=== PATIENT | male | born 1955 | race Caucasian/White ===

== ENCOUNTER 2017-01-03 16:05 | Observation (INO) | payer BC ==
[2017-01-03] MEDS ORDERED: ASPIRIN PO ONE (16:12)
[2017-01-03] MEDS ORDERED: ASPIRIN 81 MG CHEWTAB ONE (16:21)
[2017-01-03 16:33] LABS: BASOPHILS % (AUTO) 0.6 % (0.2-1.0); EOSINOPHILS % (AUTO) 0.4 % (0.9-2.9); HEMOGLOBIN 13.8 g/dL (13.5-18.0); LYMPHOCYTES # (AUTO) 0.9 X10^3/uL (1.3-2.9); LYMPHOCYTES % (AUTO) 13.1 % (21.0-51.0); MEAN CORPUSCULAR HEMOGLOBIN 29.4 pg (27.0-34.0); MEAN CORPUSCULAR HGB CONC 33.8 g/dL (33.0-35.0); MEAN CORPUSCULAR VOLUME 87.1 fL (80.0-100.0); MEAN PLATELET VOLUME 9.9 fL (7.4-11.0); MONOCYTES # (AUTO) 0.3 x10^3/uL (0.3-0.8); MONOCYTES % (AUTO) 4.5 % (0.0-13.0); NEUTROPHILS # (AUTO) 5.8 x10^3/uL (2.2-4.8); NEUTROPHILS % (AUTO) 81.4 % (42.0-75.0); PLATELET COUNT 131 X10^3/uL (150.0-450.0); RED CELL DISTRIBUTION WIDTH 15.4 % (11.6-16.5); WHITE BLOOD COUNT 7.1 X10^3/uL (3.6-10.0)
[2017-01-03 16:51] LABS: BLOOD UREA NITROGEN 19 mg/dL (7-18); CALCIUM 8.8 mg/dL (8.5-10.1); CARBON DIOXIDE 26.8 mmol/L (21-32); CHLORIDE 102 mmol/L (98-107); COR NA(FOR HYPERGLY) 144 mmol/L (136-145); CREATININE 1.38 mg/dL (0.70-1.30); GLUCOSE 353 mg/dL (65-99); SODIUM 138 mmol/L (136-145); TROPONIN I 0.03 ng/mL (0-1.5); eGFR BLACK RACES > 60 (>60); eGFR NON BLACK RACES 56 (>60)
[2017-01-03 16:55] LABS: ALANINE AMINOTRANSFERASE 52 Units/L (12-78); ALBUMIN 3.4 g/dL (3.4-5.0); ALKALINE PHOSPHATASE 48 Units/L (46-116); ASPARTATE AMINO TRANSFERASE 25 Units/L (15-37); CKMB % 1.9 % (<4); CREATINE KINASE 64 Units/L (39-308); CREATINE KINASE MB 1.2 ng/mL (0-4.0); TOTAL PROTEIN 6.8 g/dL (6.4-8.2)
--- NOTE | 2017-01-03 17:00 | RAD ---
HISTORY: Chest pain. Study: Chest one view Comparison: None. Findings: The trachea is midline. The cardiac silhouette is unremarkable. The lungs are clear without focal infiltrate or effusion. The bony thorax is unremarkable. IMPRESSION: 1. No acute cardiopulmonary disease. Reported By:
[2017-01-03 17:03] LABS: D DIMER 161 ng/mL (0-400)
--- NOTE | 2017-01-03 17:14 | DR.CP ---
HPI - Time Seen Time seen: 16:15 - PCP Primary Care Physician: rayna aleman - HPI Comment HPI Comment: PATIENT PAIN WAS SEVERE, 10/10 IN THE PRECORDIAL AREA. HE WAS WEAK AND DIAPHORETIC. CAME TO ED AFTER ONE HOUR AND PAIN IN ED IS 2/10. PATIENT SAID PAIN WAS HEAVY PRESSURE. HE WAS ALSO SOB. HE TOOK ALL HIS MORNING DAILY MED TODAY. - Complaint Chief Complaint Doctor Comments: CHEST PAIN WHILE GOING UP TH STEP TO DO HIS LAUDARY AT HOME AROUND 15:00PM TODAY. Chief Complaint:: patient was at home doing laundry and got short of breath and having chest pain and diaphritic. patient had 7 stints -03/01 - Reviewed Nurses Notes Review: Yes - Source History Provided: Patient - Mode of Arrival Mode of Arrival: Wheelchair - Timing Onset of Chief Complaint: 01/03/17 Pain: Present Now - Duration Duration: Constant Duration: Hours - Location Location of Chest Pain: Left, Chest Chest Pain Radiation Location: None - Context Onset: With light exertion PE Risk Factors: None History of: Similar pain in the past, NH, Angioplasty, Aspirin in last 24 hours (81MG) Prehospital Care: [facility] - Quality Quality: Pressure like, Heavy - Severity Severity: Severe - Modifying Factors Worsens: Nothing Impoves: Nothing - Associated Signs and Symptoms Associated Signs and Symptoms: Shortness of Breath, Diaphoresis PMH - PMH Past Medical History: Yes Past Medical History: Coronary Artery Disease, [place] Past Surgical History: Yes Surgical History: Angioplasty/Stents, Ortho Surgery, Other - Family History History of Family Medical Conditions: Yes Family Medical History: Coronary Artery Disease, Heart Failure - Social History Does patient currently use any type of tobacco product: No Have you used tobacco products in the last 12 months: No Type of Tobacco Use: None Does any household member use tobacco: No Alcohol Use: Rarely Do you use any recreational Drugs:: No Lives With: Family Lives Where: Home - infectious screening In the last 2 months have you had wt loss of >10#?: NO Have you had fever, night sweats or hemotysis?: No Have you traveled outside the country in the last 6 months?: No Isolation: Standard ROS - Review of Systems Constitutional: Weakness, Fatigue. negative: Chills, Fever Eyes: No Symptoms Reported. negative: Eye Pain, Discharge ENTM: No Symptoms Reported. negative: Ear Pain, Nose Discharge, Nose Congestion , Throat Pain Respiratoy: Short of Breath Cardiovascular: Chest Pain Gastrointestinal/Abdominal: Nausea Genitourinary: No Symptoms Reported. negative: Dysuria, Frequency, Hematuria Neurological: Weakness Musculoskeletal: No Symptoms Reported Integumentary: No Symptoms Reported Hematologic/Lymphatic: No Symptoms Reported Endocrine: No Symptoms Reported All Other Systems: Reviewed and Negative PE - Vitals Vitals: Temperature 98.7 F Pulse Rate 100 Respiratory Rate 16 Blood Pressure 132/88 O2 Sat by Pulse Oximetry 97 - General Limitations: No Limitations General Appearance: Alert - Head Head Exam: Normal Inspection - Eyes Eye exam: Normal Appearance - ENT ENT Exam: Normal External Ear Exam - Chest Chest Inspection: Symmetric Chest Wall Rise - Respiratory Respiratory Exam: Normal Lung Sounds Bilat Respiratory Exam: Bilateral Clear to Auscultation - Cardiovascular Cardiovascular Exam: Regular Rate, Normal Rhythm, Normal Heart Sounds Pulse: Normal, Radial, Femoral Edema: Normal - Abdominal Exam Abdominal Exam: Normal Bowel Sounds, Soft. negative: Tenderness - Extremities Extremities Exam: Normal Inspection - Back Back Exam: Normal Inspection - Neurologic Neurological Exam: Alert, Oriented X3 - Psychiatric Psychiatric Exam: Anxious - Skin Skin Exam: Pallor MDM - Additional Information Additional Information Obtained From: Family - Differential Diagnosis Differential Diagnosis: Angina, Esophageal Reflux/Spasm, Gastritis, Myocardial Infarction, Pericarditis, Pancreatitis, Pneumonia, Pneumothorax Course - Treatment Treatment: SEE ORDERS - Consultation Consultation Comments: DR NASSAR WILL PATIENT IN THE OFFICE. PATIENT WILL BE RULE OUT FOR NH AT THIS FACILITY. BENJY HUGHES WILL OBSERVE IN THE HOSPITAL TILL PATIENT IS RULE OUT FOR NH. - Education/Counseling Education/Counseling: Patient, Family, Education Educated On: Treatment, Diagnosis ROR - Labs Reviewed Laboratory Results Reviewed?: Yes Result Diagrams: 01/04/17 05:20 01/04/17 05:20 Laboratory: WBC 7.1 X10^3/uL (3.6-10.0) 01/03/17 16:18 RBC 4.70 X10^6/uL (4.7-6.0) 01/03/17 16:18 Hgb 13.8 g/dL (13.5-18.0) 01/03/17 16:18 Hct 41.0 % (42.0-54.0) L 01/03/17 16:18 MCV 87.1 fL (80.0-100.0) 01/03/17 16:18 MCH 29.4 pg (27.0-34.0) 01/03/17 16:18 MCHC 33.8 g/dL (33.0-35.0) 01/03/17 16:18 RDW 15.4 % (11.6-16.5) 01/03/17 16:18 Plt Count 131 X10^3/uL (150.0-450.0) L 01/03/17 16:18 MPV 9.9 fL (7.4-11.0) 01/03/17 16:18 Neut % 81.4 % (42.0-75.0) H 01/03/17 16:18 Lymph % 13.1 % (21.0-51.0) L 01/03/17 16:18 [place] % 4.5 % (0.0-13.0) 01/03/17 16:18 Eos % 0.4 % (0.9-2.9) L 01/03/17 16:18 Baso % 0.6 % (0.2-1.0) 01/03/17 16:18 Neut # 5.8 x10^3/uL (2.2-4.8) H 01/03/17 16:18 Lymph # 0.9 X10^3/uL (1.3-2.9) L 01/03/17 16:18 [place] # 0.3 x10^3/uL (0.3-0.8) 01/03/17 16:18 Eos # 0.0 x10^3/uL (0.0-0.2) 01/03/17 16:18 Baso # 0.0 X10^3/uL (0.0-0.1) 01/03/17 16:18 Absolute Nucleated RBC 0.1 /100WBC 01/03/17 16:18 INR Target Range - 01/03/17 16:18 INR 1.04 (0.8-1.3) 01/03/17 16:18 PTT 24.4 SECONDS (22.9-36.5) 01/03/17 16:18 PTT Comment - 01/03/17 16:18 D-Dimer 161 ng/mL (0-400) 01/03/17 16:18 Sodium 138 mmol/L (136-145) 01/03/17 16:18 Corrected Sodium 144 mmol/L (136-145) 01/03/17 16:18 Potassium 4.3 mmol/L (3.5-5.1) 01/03/17 16:18 Chloride 102 mmol/L (98-107) 01/03/17 16:18 Carbon Dioxide 26.8 mmol/L (21-32) 01/03/17 16:18 BUN 19 mg/dL (7-18) H 01/03/17 16:18 Creatinine 1.38 mg/dL (0.70-1.30) H 01/03/17 16:18 Est GFR (MDRD) Af Amer > 60 (>60) 01/03/17 16:18 Est GFR (MDRD) Non-Af 56 (>60) L 01/03/17 16:18 Glucose 353 mg/dL (65-99) H 01/03/17 16:18 Calcium 8.8 mg/dL (8.5-10.1) 01/03/17 16:18 Corrected Calcium TNP 01/03/17 16:18 Magnesium 1.0 mg/dL (1.7-2.9) L 01/03/17 16:18 Total Bilirubin 0.80 mg/dL (0.2-1.0) 01/03/17 16:18 AST 25 Units/L (15-37) 01/03/17 16:18 ALT 52 Units/L (12-78) 01/03/17 16:18 Alkaline Phosphatase 48 Units/L (46-116) 01/03/17 16:18 Creatine Kinase 64 Units/L (39-308) 01/03/17 16:18 CK-MB (CK-2) 1.2 ng/mL (0-4.0) 01/03/17 16:18 CK/CKMB % Calc 1.9 % (<4) 01/03/17 16:18 Troponin I 0.03 ng/mL (0-1.5) 01/03/17 16:18 Total Protein 6.8 g/dL (6.4-8.2) 01/03/17 16:18 Albumin 3.4 g/dL (3.4-5.0) 01/03/17 16:18 Globulin 3.4 g/dL (2.5-4.5) 01/03/17 16:18 Albumin/Globulin Ratio 1.0 Ratio (1.1-2.1) L 01/03/17 16:18 Acetone, Semi-Quant Negative (NEGATIVE) 01/03/17 17:02 - XRAY XRAY Interpreted by: Radiologist XRAY Findings: REPORT DISCUSS WITH PATIENT AND HIS . - Diagnosis Discharge Problem: Respiratory distress Chest pain Qualifiers: Chest pain type: precordial pain Qualified Code(s): R07.2 - Precordial pain - Discharge Plan Disposition: ADMITTED INPATIENT Condition: Stable - Follow ups/Referrals - Instructions
[2017-01-03 17:32] LABS: BILIRUBIN,URINE NEGATIVE (NEGATIVE); BLOOD/HEMOGLOBIN,URINE NEGATIVE (NEGATIVE); GLUCOSE, URINE 4+ (NEGATIVE); KETONES,URINE 1+ (NEGATIVE); LEUKOCYTE ESTERASE ,URINE NEGATIVE (NEGATIVE); NITRITES,URINE NEGATIVE (NEGATIVE); PROTEIN,URINE NEGATIVE (NEGATIVE); UROBILINOGEN,URINE NORMAL (NORMAL)
[2017-01-03 17:40] LABS: AMORPHOUS SEDIMENT,UR TRACE /HPF (NEGATIVE); APPEARANCE,URINE CLEAR (CLEAR); BACTERIA,URINE NEGATIVE /HPF (NEGATIVE); COLOR,URINE YELLOW (YELLOW); RBC,URINE 0-1 /HPF (NEGATIVE); SQUAMOUS EPITHELIAL CELL,UR NEGATIVE /HPF (NEGATIVE)
[2017-01-03] MEDS ORDERED: LIPITOR TAB 40 MG PO SCH (21:00)
[2017-01-03] MEDS ORDERED: MAGNESIUM SULFATE 1 GM/100 mL PREMIX 1 GM/100 ML BAG IV ONE (21:02)
[2017-01-03] MEDS ORDERED: ZANTAC PO PRN (21:04)
[2017-01-03 21:23] VITALS: BMI 30.4
[2017-01-03] MEDS: NEURONTIN CAP 100 MG PO SCH (21:57)
[2017-01-03] MEDS: RANEXA PO SCH (22:02)
[2017-01-03] MEDS: LOPRESSOR TAB 50 MG PO SCH (22:02)
[2017-01-03 22:12] LABS: CREATINE KINASE 51 Units/L (39-308); CREATINE KINASE MB < 1.0 ng/mL (0-4.0); TROPONIN I 0.02 ng/mL (0-1.5)
[2017-01-04 05:56] LABS: ALANINE AMINOTRANSFERASE 45 Units/L (12-78); ALBUMIN 3.2 g/dL (3.4-5.0); ALKALINE PHOSPHATASE 40 Units/L (46-116); ASPARTATE AMINO TRANSFERASE 20 Units/L (15-37); BLOOD UREA NITROGEN 16 mg/dL (7-18); CALCIUM 8.6 mg/dL (8.5-10.1); CARBON DIOXIDE 31.8 mmol/L (21-32); CHLORIDE 104 mmol/L (98-107); CHOL/HDL RATIO 3.5 (0.0-5.0); CHOLESTEROL 187 mg/dL (0-200); CKMB % 2.6 % (<4); COR CA(FOR HYPOALB) 9.2 mg/dL (8.5-10.1); COR NA(FOR HYPERGLY) 142 mmol/L (136-145); CREATINE KINASE 39 Units/L (39-308); CREATINE KINASE MB < 1.0 ng/mL (0-4.0); CREATININE 0.97 mg/dL (0.70-1.30); GLUCOSE 173 mg/dL (65-99); HDL CHOLESTEROL 54 mg/dL (40-60); SODIUM 140 mmol/L (136-145); TOTAL PROTEIN 6.4 g/dL (6.4-8.2); TRIGLYCERIDES 154 mg/dL (0-150); TROPONIN I 0.03 ng/mL (0-1.5); eGFR BLACK RACES > 60 (>60); eGFR NON BLACK RACES > 60 (>60)
[2017-01-04 06:05] LABS: BASOPHILS # (AUTO) 0.1 X10^3/uL (0.0-0.1); BASOPHILS % (AUTO) 0.7 % (0.2-1.0); EOSINOPHILS # (AUTO) 0.1 x10^3/uL (0.0-0.2); EOSINOPHILS % (AUTO) 1.8 % (0.9-2.9); HEMATOCRIT 38.6 % (42.0-54.0); HEMOGLOBIN 13.2 g/dL (13.5-18.0); LYMPHOCYTES # (AUTO) 2.7 X10^3/uL (1.3-2.9); LYMPHOCYTES % (AUTO) 36.2 % (21.0-51.0); MEAN CORPUSCULAR HEMOGLOBIN 29.4 pg (27.0-34.0); MEAN CORPUSCULAR HGB CONC 34.2 g/dL (33.0-35.0); MEAN PLATELET VOLUME 9.3 fL (7.4-11.0); MONOCYTES # (AUTO) 0.7 x10^3/uL (0.3-0.8); MONOCYTES % (AUTO) 9.4 % (0.0-13.0); NEUTROPHILS # (AUTO) 3.8 x10^3/uL (2.2-4.8); NEUTROPHILS % (AUTO) 51.9 % (42.0-75.0); PLATELET COUNT 132 X10^3/uL (150.0-450.0); RED BLOOD COUNT 4.49 X10^6/uL (4.7-6.0); RED CELL DISTRIBUTION WIDTH 15.4 % (11.6-16.5); WHITE BLOOD COUNT 7.4 X10^3/uL (3.6-10.0)
[2017-01-04] MEDS ORDERED: PATIENT'S HOME MEDICATION (Atorvastatin Calcium [Atorvastatin Calcium] 80 MG) PO SCH (09:00)
[2017-01-04] MEDS: FLOMAX PO SCH (09:21)
[2017-01-04] MEDS: ASPIRIN EC 81 MG PO SCH (09:21)
[2017-01-04] MEDS: PREDNISONE TAB 10 MG PO SCH (09:21)
[2017-01-04] MEDS: NEURONTIN CAP 100 MG PO SCH ×3 (09:22→21:25)
[2017-01-04] MEDS: RANEXA PO SCH ×2 (09:22→21:25)
[2017-01-04] MEDS: LIPITOR TAB 40 MG PO SCH (09:22)
[2017-01-04] MEDS: PLAVIX PO SCH (09:22)
[2017-01-04] MEDS: ATARAX TAB 25 MG PO SCH ×4 (09:23→21:32)
[2017-01-04] MEDS: LOPRESSOR TAB 50 MG PO SCH ×2 (09:23→21:25)
[2017-01-04] MEDS: FOLIC ACID TAB 1 MG PO SCH (09:23)
[2017-01-04] MEDS ORDERED: PHARMACY CONSULT - DOSE _____ XX SCH (10:00)
[2017-01-04] MEDS ORDERED: NS 250 ML IV 0 ML IV ONE (10:53)
[2017-01-04] MEDS: MAGNESIUM SULFATE 1 GM/100 mL PREMIX 1 GM/100 ML BAG IV SCH ×3 (11:04→12:49)
[2017-01-04] MEDS: PROTONIX INJ 40 MG VIAL IVP SCH (11:05)
[2017-01-04] MEDS: LEVSIN/MAALOX/LIDOC VISC PO SCH ×4 (11:05→21:24)
[2017-01-04] MEDS: TESTOSTERONE TOP SCH ×2 (11:13→14:31)
[2017-01-04] MEDS: GARLIC 1000 MG PO SCH ×2 (11:13→14:31)
[2017-01-04] MEDS: HumuLIN R SUBCUT PRN ×2 (11:25→18:02)
--- NOTE | 2017-01-04 14:10 | DR.H&P ---
H&P - History & Physical for Day of: H&P Date: 01/03/17 - Chief Complaint Chief Complaint: cp and sob - Allergies Allergies/Adverse Reactions: Allergies Allergy/AdvReac Type Severity Reaction Status Date / Time alprazolam [From Xanax] Allergy Verified 01/03/17 21:27 diazepam [From Valium] Allergy Verified 01/03/17 21:27 - History of Present Illness History of Present Illness: Mister Childress is a 61-year-old white male who was an admission from the ER after presenting with complaints of chest pain and shortness of breath accompanied by diaphoresis. Patient stated pain started after climbing stairs with a laundry basket. Patient stated he tried to rest for approximately an hour before arrived home and she stated patient was still clammy at that time. Patient's complaint of lower extremity weakness as well. Upon arrival to the ER patient was noted to be anxious. Patient's blood sugar on arrival was elevated he denies any history of diabetes. Patient states his last heart catheterization was November [address] Johnson is in which he received 2 stents. Patient states he saw Dr. Johnson for follow-up last week and everything was fine. 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 Patient admitted for further evaluation of chest pain, serial cardiac enzymes and EKGs. - Past Medical History Past Medical History: Coronary Artery Disease, [place] - Past Surgical History Surgical History: Angioplasty/Stents, Ortho Surgery, Other - Family History Family Medical History: Coronary Artery Disease, Heart Failure - Social History Does patient currently use any type of tobacco product: No Have you used tobacco products in the last 12 months: No Type of Tobacco Use: None Does any household member use tobacco: No Alcohol Use: Rarely Drug Use: None - Medications Home Medications: Aspirin [Adult Low Dose Aspirin EC] 81 mg PO DAILY 01/03/17 [History Confirmed 01/03/17] Atorvastatin Calcium 80 mg PO DAILY 01/03/17 [History Confirmed 01/03/17] Clopidogrel Bisulfate [Clopidogrel] 75 mg PO DAILY 01/03/17 [History Confirmed 01/03/17] Doxazosin Mesylate 2 mg [CARDURA 2 MG *] 4 mg PO HS 01/03/17 [History Confirmed 01/03/17] Folic Acid [FOLIC ACID TAB 1 MG *] 1 mg PO DAILY 01/03/17 [History Confirmed ] Gabapentin [Gabapentin] 100 mg PO TID 01/03/17 [History Confirmed 01/03/17] Garlic 1,000 mg PO DAILY 01/03/17 [History Confirmed 01/03/17] Hydroxyzine HCl [Hydroxyzine HCl] 25 mg PO QID 01/03/17 [History Confirmed 01/03] Methotrexate Sodium [METHOTREXATE 2.5 MG *] 6 tab PO WEEKLY 01/03/17 [History Confirmed 01/03/17] Metoprolol Tartrate [LOPRESSOR 50 MG *] 50 mg PO BID 01/03/17 [History Confirmed 01/03/17] Prednisone [Prednisone] 20 mg PO DAILY 01/03/17 [History Confirmed 01/03/17] Ranitidine HCl [ZANTAC TAB 150 MG *] 150 mg PO PRN PRN 01/03/17 [History Confirmed 01/03/17] Ranolazine [RANEXA 500 MG *] 500 mg PO BID 01/03/17 [History Confirmed 01/03/17] Tamsulosin HCl [Tamsulosin HCl] 0.4 mg PO DAILY 01/03/17 [History Confirmed ] Testosterone [Androgel 1.62% 30 x 1.25 gm] 2.5 mg TOP DAILY 01/03/17 [History Confirmed 01/03/17] - Review of Systems Constitutional: Sweats, Weakness Eyes: No Symptoms Reported Respiratory: Shortness of Breath Cardiovascular: Chest Pain Gastrointestinal: Nausea Genitourinary: No Symptoms Reported Musculoskeletal: Back Pain, Leg Pain Skin: No Symptoms Reported Neurological: Weakness (mild to bilateral lower extremities) - Physical Exam Vital Signs: Temperature 98.0 F Pulse Rate [Left Brachial] 52 Respiratory Rate 20 Blood Pressure [Left Arm] 104/69 O2 Sat by Pulse Oximetry 98 Oriented: Normal Eyes: Normal Ear: Normal Nose: Normal Throat: Normal Respiratory: Clear Throughout Cardiovascular: Normal, Edema (mmild bilateral trace edema) : Normal Auscultation: Bowel Sounds: Normal Palpation: Normal Tenderness: Epigastric Skin: Normal Musculoskeletal: Normal Psychiatric: Anxiety Affect: Anxious Speech Pattern: Clear, Appropriate - Assessment/Plan (1) Chest pain Qualifiers: Chest pain type: precordial pain Ischemic chest pain type: I Qualified Code(s): R07.2 - Precordial pain Status: Acute Plan: admit for serial cardiac enzymes and EKGs, telemetry, fasting lipid level , chest x-ray on admission, present home medication (2) Shortness of breath Status: Acute (3) Still's disease Status: Acute (4) Hypertension Qualifiers: Hypertension type: H Status: Acute (5) Coronary artery disease Qualifiers: Coronary Disease-Associated Artery/Lesion type: C [place] vs. transplanted heart: N Associated angina: A Status: Acute
--- NOTE | 2017-01-04 14:15 | PCM.PROG ---
Progress Note - Progress Note for Day of Date: 01/04/17 - Subjective Subjective: Chest pain,, lower extremity weakness, reflux - Past Medical Family Social History Past Med/Fam/Surg Hx: No changes since H&P Allergies: Allergies alprazolam [From Xanax] Allergy (Verified 01/03/17 21:27) diazepam [From Valium] Allergy (Verified 01/03/17 21:27) - Review of Systems ROS: No change since H&P - Vital Signs and I&O's Vital Signs: Temperature 98.0 F Pulse Rate [Left Brachial] 52 Respiratory Rate 20 Blood Pressure [Left Arm] 104/69 O2 Sat by Pulse Oximetry 98 Intake and Output: Intake & Output 01/02/17 01/03/17 01/04/17 01/05/17 11:59 11:59 11:59 11:59 Intake Total 120 Output Total 3 Balance 117 - Physical Exam Oriented: Normal Eyes: Normal Ear: Normal Nose: Normal Throat: Normal Respiratory: Normal Cardiovascular: Normal, Edema (mmild bilateral trace edema) : Normal Auscultation: Bowel Sounds: Normal Tenderness: Epigastric Skin: Normal Musculoskeletal: Normal Psychiatric: Anxiety Affect: Anxious Speech Pattern: Clear, Appropriate - Laboratory and Diagnostics Result Diagrams: 01/04/17 05:20 01/04/17 05:20 Labs: Laboratory WBC 7.4 X10^3/uL (3.6-10.0) 01/04/17 05:20 RBC 4.49 X10^6/uL (4.7-6.0) L 01/04/17 05:20 Hgb 13.2 g/dL (13.5-18.0) L 01/04/17 05:20 Hct 38.6 % (42.0-54.0) L 01/04/17 05:20 MCV 86.0 fL (80.0-100.0) 01/04/17 05:20 MCH 29.4 pg (27.0-34.0) 01/04/17 05:20 MCHC 34.2 g/dL (33.0-35.0) 01/04/17 05:20 RDW 15.4 % (11.6-16.5) 01/04/17 05:20 Plt Count 132 X10^3/uL (150.0-450.0) L 01/04/17 05:20 MPV 9.3 fL (7.4-11.0) 01/04/17 05:20 Neut % 51.9 % (42.0-75.0) 01/04/17 05:20 Lymph % 36.2 % (21.0-51.0) 01/04/17 05:20 [place] % 9.4 % (0.0-13.0) 01/04/17 05:20 Eos % 1.8 % (0.9-2.9) 01/04/17 05:20 Baso % 0.7 % (0.2-1.0) 01/04/17 05:20 Neut # 3.8 x10^3/uL (2.2-4.8) 01/04/17 05:20 Lymph # 2.7 X10^3/uL (1.3-2.9) 01/04/17 05:20 [place] # 0.7 x10^3/uL (0.3-0.8) 01/04/17 05:20 Eos # 0.1 x10^3/uL (0.0-0.2) 01/04/17 05:20 Baso # 0.1 X10^3/uL (0.0-0.1) 01/04/17 05:20 Absolute Nucleated RBC 0.2 /100WBC 01/04/17 05:20 INR Target Range - 01/03/17 16:18 INR 1.04 (0.8-1.3) 01/03/17 16:18 PTT 24.4 SECONDS (22.9-36.5) 01/03/17 16:18 PTT Comment - 01/03/17 16:18 D-Dimer 161 ng/mL (0-400) 01/03/17 16:18 Sodium 140 mmol/L (136-145) 01/04/17 05:20 Corrected Sodium 142 mmol/L (136-145) 01/04/17 05:20 Potassium 3.8 mmol/L (3.5-5.1) 01/04/17 05:20 Chloride 104 mmol/L (98-107) 01/04/17 05:20 Carbon Dioxide 31.8 mmol/L (21-32) 01/04/17 05:20 BUN 16 mg/dL (7-18) 01/04/17 05:20 Creatinine 0.97 mg/dL (0.70-1.30) 01/04/17 05:20 Est GFR (MDRD) Af Amer > 60 (>60) 01/04/17 05:20 Est GFR (MDRD) Non-Af > 60 (>60) 01/04/17 05:20 Glucose 173 mg/dL (65-99) H 01/04/17 05:20 Hemoglobin A1c 8.3 % (4.5-6.2) H 01/03/17 16:27 Calcium 8.6 mg/dL (8.5-10.1) 01/04/17 05:20 Corrected Calcium 9.2 mg/dL (8.5-10.1) 01/04/17 05:20 Magnesium 1.2 mg/dL (1.7-2.9) L 01/04/17 05:20 Total Bilirubin 0.80 mg/dL (0.2-1.0) 01/04/17 05:20 AST 20 Units/L (15-37) 01/04/17 05:20 ALT 45 Units/L (12-78) 01/04/17 05:20 Alkaline Phosphatase 40 Units/L (46-116) L 01/04/17 05:20 Creatine Kinase 39 Units/L (39-308) 01/04/17 05:20 CK-MB (CK-2) < 1.0 ng/mL (0-4.0) 01/04/17 05:20 CK/CKMB % Calc 2.6 % (<4) 01/04/17 05:20 Troponin I 0.03 ng/mL (0-1.5) 01/04/17 05:20 Total Protein 6.4 g/dL (6.4-8.2) 01/04/17 05:20 Albumin 3.2 g/dL (3.4-5.0) L 01/04/17 05:20 Globulin 3.2 g/dL (2.5-4.5) 01/04/17 05:20 Albumin/Globulin Ratio 1.0 Ratio (1.1-2.1) L 01/04/17 05:20 Triglycerides 154 mg/dL (0-150) H 01/04/17 05:20 Cholesterol 187 mg/dL (0-200) 01/04/17 05:20 LDL Cholesterol, Calc 102 mg/dL (0-100) H 01/04/17 05:20 HDL Cholesterol 54 mg/dL (40-60) 01/04/17 05:20 Cholesterol/HDL Ratio 3.5 (0.0-5.0) 01/04/17 05:20 Specimen Type Clean catch urine 01/03/17 17:23 Urine Color Yellow (YELLOW) 01/03/17 17:23 Urine Appearance Clear (CLEAR) 01/03/17 17:23 Urine pH 5.0 (5.0 - 8.0) 01/03/17 17:23 Ur Specific [place] 1.015 (1.000-1.030) 01/03/17 17:23 Urine Protein Negative (NEGATIVE) 01/03/17 17:23 Urine Glucose (UA) 4+ (NEGATIVE) 01/03/17 17:23 Urine Ketones 1+ (NEGATIVE) 01/03/17 17:23 Urine Occult Blood Negative (NEGATIVE) 01/03/17 17:23 Urine Nitrite Negative (NEGATIVE) 01/03/17 17:23 Urine Bilirubin Negative (NEGATIVE) 01/03/17 17:23 Urine Urobilinogen Normal (NORMAL) 01/03/17 17:23 Ur Leukocyte Esterase Negative (NEGATIVE) 01/03/17 17:23 Urine RBC 0-1 /HPF (NEGATIVE) 01/03/17 17:23 Urine WBC None seen /HPF (NEGATIVE) 01/03/17 17:23 Ur Squamous Epith Cells Negative /HPF (NEGATIVE) 01/03/17 17:23 Amorphous Sediment Trace /HPF (NEGATIVE) 01/03/17 17:23 Urine Bacteria Negative /HPF (NEGATIVE) 01/03/17 17:23 Ur Culture Indicated? No/not indicated 01/03/17 17:23 Acetone, Semi-Quant Negative (NEGATIVE) 01/03/17 17:02 - Plan (1) Chest pain Status: Acute Qualifiers: Chest pain type: precordial pain Ischemic chest pain type: I Qualified Code(s): R07.2 - Precordial pain Plan: serial cardiac enzymes and EKG stable. ER physician contacted Dr. Johnson , patient's ironer machine last p.m. recommended patient have serial cardiac enzymes and EKGs. We'll continue blood pressure and lipid control (2) Shortness of breath Status: Acute (3) Still's disease Status: Acute (4) Hypertension Status: Acute Qualifiers: Hypertension type: H (5) Coronary artery disease Status: Acute Qualifiers: Coronary Disease-Associated Artery/Lesion type: C [place] vs. transplanted heart: N Associated angina: A Plan: telemetry, blood pressure lipid control, supplemental O2, blood sugar control (6) Diabetes type 2, uncontrolled Status: Acute Qualifiers: Diabetes mellitus complication status: D Diabetes mellitus complication detail: D Diabetic retinopathy severity: D Proliferative retinopathy type: P Diabetes mellitus macular edema: D Diabetes mellitus residential insulin use : D Laterality: L Chronic kidney disease stage: C Plan: new onset diabetes, probably due to prednisone therapy for still's disease , but the A1c, sliding scale insulin coverage and diabetic education (7) Hypomagnesemia Status: Acute Plan: magnesium replacement, blood pressure control, repeat a.m. labs
[2017-01-04] MEDS ORDERED: RESTORIL CAP 15 MG PO PRN (18:27)
[2017-01-04] MEDS ORDERED: SNACK - Diabetic Appropriate PO SCH (20:00)
[2017-01-04] MEDS ORDERED: CARDURA PO SCH (21:00)
[2017-01-05 04:51] LABS: BASOPHILS # (AUTO) 0.1 X10^3/uL (0.0-0.1); BASOPHILS % (AUTO) 0.9 % (0.2-1.0); EOSINOPHILS # (AUTO) 0.2 x10^3/uL (0.0-0.2); EOSINOPHILS % (AUTO) 2.2 % (0.9-2.9); HEMATOCRIT 38.7 % (42.0-54.0); HEMOGLOBIN 13.1 g/dL (13.5-18.0); LYMPHOCYTES # (AUTO) 2.8 X10^3/uL (1.3-2.9); LYMPHOCYTES % (AUTO) 39.9 % (21.0-51.0); MEAN CORPUSCULAR HEMOGLOBIN 29.6 pg (27.0-34.0); MEAN CORPUSCULAR HGB CONC 33.8 g/dL (33.0-35.0); MEAN CORPUSCULAR VOLUME 87.6 fL (80.0-100.0); MEAN PLATELET VOLUME 9.4 fL (7.4-11.0); MONOCYTES # (AUTO) 0.5 x10^3/uL (0.3-0.8); MONOCYTES % (AUTO) 7.3 % (0.0-13.0); NEUTROPHILS # (AUTO) 3.4 x10^3/uL (2.2-4.8); NEUTROPHILS % (AUTO) 49.7 % (42.0-75.0); PLATELET COUNT 131 X10^3/uL (150.0-450.0); RED BLOOD COUNT 4.42 X10^6/uL (4.7-6.0); RED CELL DISTRIBUTION WIDTH 15.2 % (11.6-16.5); WHITE BLOOD COUNT 6.9 X10^3/uL (3.6-10.0)
[2017-01-05 05:22] LABS: ALANINE AMINOTRANSFERASE 47 Units/L (12-78); ALBUMIN 3.1 g/dL (3.4-5.0); ALKALINE PHOSPHATASE 39 Units/L (46-116); AMYLASE 42 Units/L (25-115); ASPARTATE AMINO TRANSFERASE 23 Units/L (15-37); BLOOD UREA NITROGEN 17 mg/dL (7-18); CALCIUM 8.5 mg/dL (8.5-10.1); CARBON DIOXIDE 32.7 mmol/L (21-32); CHLORIDE 104 mmol/L (98-107); COR CA(FOR HYPOALB) 9.2 mg/dL (8.5-10.1); COR NA(FOR HYPERGLY) 142 mmol/L (136-145); CREATININE 1.08 mg/dL (0.70-1.30); GLUCOSE 167 mg/dL (65-99); LIPASE 89 Units/L (73-393); MAGNESIUM 1.6 mg/dL (1.7-2.9); SODIUM 140 mmol/L (136-145); TOTAL PROTEIN 6.2 g/dL (6.4-8.2); eGFR BLACK RACES > 60 (>60); eGFR NON BLACK RACES > 60 (>60)
[2017-01-05] MEDS: NEURONTIN CAP 100 MG PO SCH ×2 (05:54→14:22)
[2017-01-05] MEDS: RANEXA PO SCH (09:04)
[2017-01-05] MEDS: ATARAX TAB 25 MG PO SCH ×2 (09:04→14:22)
[2017-01-05] MEDS: PREDNISONE TAB 10 MG PO SCH (09:04)
[2017-01-05] MEDS: PROTONIX INJ 40 MG VIAL IVP SCH (09:04)
[2017-01-05] MEDS: LOPRESSOR TAB 50 MG PO SCH (09:04)
[2017-01-05] MEDS: FLOMAX PO SCH (09:04)
[2017-01-05] MEDS: LIPITOR TAB 40 MG PO SCH (09:04)
[2017-01-05] MEDS: ASPIRIN EC 81 MG PO SCH (09:04)
[2017-01-05] MEDS: FOLIC ACID TAB 1 MG PO SCH (09:04)
[2017-01-05] MEDS: GARLIC 1000 MG PO SCH (09:05)
[2017-01-05] MEDS: PLAVIX PO SCH (09:10)
[2017-01-05] MEDS: LEVSIN/MAALOX/LIDOC VISC PO SCH ×2 (09:11→14:23)
[2017-01-05] MEDS: TESTOSTERONE TOP SCH (09:13)
[2017-01-05] MEDS: HumuLIN R SUBCUT PRN (14:22)
[2017-01-05 16:16] VITALS: BP 108/66
== END 2017-01-05 16:50 | disposition home or self-care (01) ==
LOC: ER 16:05 → MED/SURG 18:39
PROVIDERS: ADMIT Internal Medicine; ATTEND Internal Medicine
DX: R07.2 Precordial pain (principal); R06.02 Shortness of breath; R61 Generalized hyperhidrosis; K21.9 Gastro-esophageal reflux disease without esophagitis; M08.20 Juvenile rheumatoid arthritis with systemic onset, unspecified site; M19.90 Unspecified osteoarthritis, unspecified site; E83.42 Hypomagnesemia; I10 Essential (primary) hypertension; E11.9 Type 2 diabetes mellitus without complications; I25.10 Atherosclerotic heart disease of native coronary artery without angina pectoris
CPT/HCPCS: 36415; 71010; 80053; 80061; 81001; 82009; 82150; 82550; 82553; 83036; 83690; 83735; 84484; 85025; 85378; 85610; 85730; 93005; 93010; 94760; 96365; 99284; A4216; A4222; C9113; G0378; J1815; J7506

== ENCOUNTER 2019-12-13 10:55 | Inpatient (IN) ==
--- NOTE | 2019-12-13 11:07 | DR.CP ---
HPI Time Seen Time Seen by Provider: 12/13/19 11:06 PMH PMH Past Medical History: Coronary Artery Disease, Dyslipidemia and Hypertension Past Surgical History: Yes Surgical History: Angioplasty/Stents and Ortho Surgery Family History Family Medical History: Coronary Artery Disease and Heart Failure Social History Do you use any recreational Drugs:: No ROS Review of Systems Constitutional: No Symptoms Reported Eyes: No Symptoms Reported ENTM: No Symptoms Reported Respiratoy: No Symptoms Reported Cardiovascular: No Symptoms Reported Gastrointestinal/Abdominal: No Symptoms Reported Genitourinary: No Symptoms Reported Neurological: No Symptoms Reported Musculoskeletal: No Symptoms Reported Integumentary: No Symptoms Reported Hematologic/Lymphatic: No Symptoms Reported Endocrine: No Symptoms Reported Psychiatric: No Symptoms Reported All Other Systems: Reviewed and Negative PE Vitals Vitals: Temperature 100 F Pulse Rate 61 Respiratory Rate 24 Blood Pressure [Right Arm] 129/81 Blood Pressure 129/73 O2 Sat by Pulse Oximetry 97 General Limitations: No Limitations General Appearance: Alert and In No Apparent Distress Head Head Exam: Normal Inspection Eyes Eye exam: Normal Appearance ENT ENT Exam: Normal Exam Chest Chest Inspection: Normal Inspection Respiratory Respiratory Exam: Normal Lung Sounds Bilat Cardiovascular Cardiovascular Exam: Regular Rate and Normal Rhythm Pulse: Normal Edema: Normal Abdominal Exam Abdominal Exam: Normal Inspection, Normal Bowel Sounds and Soft Extremities Extremities Exam: Normal Inspection Back Back Exam: Normal Inspection Neurologic Neurological Exam: Alert and Oriented X3 Psychiatric Psychiatric Exam: Normal Affect and Normal Mood Skin Skin Exam: Warm, Dry, Intact and Normal Color ROR Labs Reviewed Result Diagrams: 12/13/19 11:44 12/13/19 11:44 Laboratory: WBC 12.2 X10^3/uL (3.6-10.0) H 12/13/19 11:44 RBC 4.76 X10^6/uL (4.7-6.0) 12/13/19 11:44 Hgb 14.5 g/dL (13.5-18.0) 12/13/19 11:44 Hct 42.3 % (42.0-54.0) 12/13/19 11:44 MCV 88.9 fL (80.0-100.0) 12/13/19 11:44 MCH 30.5 pg (27.0-34.0) 12/13/19 11:44 MCHC 34.3 g/dL (33.0-35.0) 12/13/19 11:44 RDW 14.0 % (11.6-16.5) 12/13/19 11:44 Plt Count 93 X10^3/uL (150.0-450.0) L 12/13/19 11:44 MPV 9.1 fL (7.4-11.0) 12/13/19 11:44 Neut % (Auto) 89.3 % (42.0-75.0) H 12/13/19 11:44 Lymph % (Auto) 5.5 % (21.0-51.0) L 12/13/19 11:44 [place] % (Auto) 4.9 % (0.0-13.0) 12/13/19 11:44 Eos % (Auto) 0.0 % (0.9-2.9) L 12/13/19 11:44 Baso % (Auto) 0.3 % (0.2-1.0) 12/13/19 11:44 Neut # (Auto) 10.9 x10^3/uL (2.2-4.8) H 12/13/19 11:44 Lymph # (Auto) 0.7 X10^3/uL (1.3-2.9) L 12/13/19 11:44 [place] # (Auto) 0.6 x10^3/uL (0.3-0.8) 12/13/19 11:44 Eos # (Auto) 0.0 x10^3/uL (0.0-0.2) 12/13/19 11:44 Baso # (Auto) 0.0 X10^3/uL (0.0-0.1) 12/13/19 11:44 Absolute Nucleated RBC 0.2 /100WBC 12/13/19 11:44 Sample Site Lr 12/13/19 11:20 ABG pH 7.480 (7.35-7.45) H 12/13/19 11:20 ABG pCO2 35.0 mmHg (35.0-45.0) 12/13/19 11:20 ABG pO2 57.0 mmHg (80.0-100.0) L 12/13/19 11:20 ABG HCO3 26.1 mmol/L (22-26) H 12/13/19 11:20 ABG O2 Saturation 91.0 % (90-100) 12/13/19 11:20 ABG Base Excess 2.8 mmol/L (-2.0-2.0) H 12/13/19 11:20 Evan Test Pos 12/13/19 11:20 A-a Gradient 49.0 mmHg 12/13/19 11:20 FiO2 21.0 12/13/19 11:20 Blood Gas Comments Rico well cb 12/13/19 11:20 Sodium 132 mmol/L (136-145) L 12/13/19 11:44 Corrected Sodium 132 mmol/L (136-145) L 12/13/19 11:44 Potassium 3.9 mmol/L (3.5-5.1) 12/13/19 11:44 Chloride 96 mmol/L (98-107) L 12/13/19 11:44 Carbon Dioxide 27.3 mmol/L (21-32) 12/13/19 11:44 BUN 16 mg/dL (7-18) 12/13/19 11:44 Creatinine 1.52 mg/dL (0.70-1.30) H 12/13/19 11:44 Est GFR (MDRD) Af Amer 60 (>60) 12/13/19 11:44 Est GFR (MDRD) Non-Af 49 (>60) L 12/13/19 11:44 Glucose 120 mg/dL (65-99) H 12/13/19 11:44 Lactic Acid 1.1 mmol/L (0.4-2.0) 12/13/19 11:44 Calcium 8.8 mg/dL (8.5-10.1) 12/13/19 11:44 Corrected Calcium 9.7 mg/dL (8.5-10.1) 12/13/19 11:44 Ferritin 1268 ng/mL (26-388) H 12/13/19 11:44 Total Bilirubin 0.80 mg/dL (0.2-1.0) 12/13/19 11:44 AST 27 Units/L (15-37) 12/13/19 11:44 ALT 25 Units/L (12-78) 12/13/19 11:44 Alkaline Phosphatase 59 Units/L (46-116) 12/13/19 11:44 Lactate Dehydrogenase 187 Units/L (85-227) 12/13/19 11:44 Creatine Kinase 84 Units/L (39-308) 12/13/19 11:44 CK-MB (CK-2) < 1.0 ng/mL (0-4.0) 12/13/19 11:44 CK/CKMB % Calc 1.2 % (<4) 12/13/19 11:44 Troponin I < 0.02 ng/mL (0-1.5) 12/13/19 11:44 Total Protein 6.7 g/dL (6.4-8.2) 12/13/19 11:44 Albumin 2.9 g/dL (3.4-5.0) L 12/13/19 11:44 Globulin 3.8 g/dL (2.5-4.5) 12/13/19 11:44 Albumin/Globulin Ratio 0.8 Ratio (1.1-2.1) L 12/13/19 11:44 EKG [place]: Normal Rhythm: NSR Block: None Hypertrophy: None ST: Normal Opioid Opioid Risk Tool Age (Nestor box if 16-45): No Total: 0 Total Score Risk Category: Low Risk Copyright: Kenrick WANG predicting aberrant behaviors Instructions Forms: Excuse From Work Precautions for COVID19 Patient Portal Social Distancing
[2019-12-13 11:21] LABS: ABG ALLEN TEST POS; ABG BASE EXCESS 2.8 mmol/L (-2.0-2.0); ABG HCO3 26.1 mmol/L (22-26)
[2019-12-13] MEDS ORDERED: NS 1000 ML 1,000 ML ONE (11:34)
[2019-12-13] MEDS ORDERED: NS 1000 ML 1,000 ML IV SCH (12:00)
[2019-12-13 12:01] LABS: BASOPHILS % (AUTO) 0.3 % (0.2-1.0); HEMATOCRIT 42.3 % (42.0-54.0); HEMOGLOBIN 14.5 g/dL (13.5-18.0); LYMPHOCYTES # (AUTO) 0.7 X10^3/uL (1.3-2.9); LYMPHOCYTES % (AUTO) 5.5 % (21.0-51.0); MEAN CORPUSCULAR HEMOGLOBIN 30.5 pg (27.0-34.0); MEAN CORPUSCULAR HGB CONC 34.3 g/dL (33.0-35.0); MEAN CORPUSCULAR VOLUME 88.9 fL (80.0-100.0); MEAN PLATELET VOLUME 9.1 fL (7.4-11.0); MONOCYTES # (AUTO) 0.6 x10^3/uL (0.3-0.8); MONOCYTES % (AUTO) 4.9 % (0.0-13.0); NEUTROPHILS # (AUTO) 10.9 x10^3/uL (2.2-4.8); NEUTROPHILS % (AUTO) 89.3 % (42.0-75.0); PLATELET COUNT 93 X10^3/uL (150.0-450.0); RED BLOOD COUNT 4.76 X10^6/uL (4.7-6.0); WHITE BLOOD COUNT 12.2 X10^3/uL (3.6-10.0)
[2019-12-13 12:16] LABS: BLOOD UREA NITROGEN 16 mg/dL (7-18); CALCIUM 8.8 mg/dL (8.5-10.1); CARBON DIOXIDE 27.3 mmol/L (21-32); CHLORIDE 96 mmol/L (98-107); COR NA(FOR HYPERGLY) 132 mmol/L (136-145); CREATININE 1.52 mg/dL (0.70-1.30); SODIUM 132 mmol/L (136-145); TROPONIN I < 0.02 ng/mL (0-1.5); eGFR NON BLACK RACES 49 (>60)
[2019-12-13 12:17] LABS: LACTIC ACID 1.1 mmol/L (0.4-2.0)
[2019-12-13 12:20] LABS: ALANINE AMINOTRANSFERASE 25 Units/L (12-78); ALBUMIN 2.9 g/dL (3.4-5.0); ALKALINE PHOSPHATASE 59 Units/L (46-116); ASPARTATE AMINO TRANSFERASE 27 Units/L (15-37); CKMB % 1.2 % (<4); COR CA(FOR HYPOALB) 9.7 mg/dL (8.5-10.1); CREATINE KINASE 84 Units/L (39-308); CREATINE KINASE MB < 1.0 ng/mL (0-4.0); LACTATE DEHYDROGENASE 187 Units/L (85-227); TOTAL PROTEIN 6.7 g/dL (6.4-8.2)
--- NOTE | 2019-12-13 12:48 | RAD ---
HISTORYSOB, FEVER, N/V/D, COVID +STUDYPortable AP chestCOMPARISONReport of examination of January 03, 2017FINDINGSThere is limited inspiration. There is streaky peripheral bands of increased attenuation in both upper lobes. There is no edema or effusion. The heart and mediastinum are unremarkable.IMPRESSIONBilateral upper lobe subsegmental atelectasis or pneumonitisElectronically signed by: KITA BAZZI (Dec 13, 2019 12:46:45)
[2019-12-13] MEDS ORDERED: FORTAZ or TAZICEF VIAL INJ 1 G in NS 100 ML IV + SPIKE MINIBAG* 100 ML IV ONE (13:48)
[2019-12-13] MEDS ORDERED: FORTAZ or TAZICEF VIAL INJ ONE (13:53)
[2019-12-13] MEDS ORDERED: NS 100 ML IV + SPIKE MINIBAG* 100 ML IV ONE (13:53)
[2019-12-13] MEDS ORDERED: REMDESIVIR (INVESTIGATIONAL DRUG GS-5734) 200 MG in NS 250 ML IV 250 ML IV ONE (14:26)
[2019-12-13] MEDS ORDERED: REMDESIVIR (INVESTIGATIONAL DRUG GS-5734) 200 MG in NS 250 ML IV 250 ML IV NR (16:00)
[2019-12-13] MEDS: VENTOLIN or PROAIR HFA IN SCH ×2 (16:30→21:50)
[2019-12-13 18:25] LABS: BILIRUBIN,URINE NEGATIVE (NEGATIVE); BLOOD/HEMOGLOBIN,URINE NEGATIVE (NEGATIVE); GLUCOSE, URINE NEGATIVE (NEGATIVE); KETONES,URINE 2+ (NEGATIVE); LEUKOCYTE ESTERASE ,URINE NEGATIVE (NEGATIVE); NITRITES,URINE NEGATIVE (NEGATIVE); PROTEIN,URINE 2+ (NEGATIVE); UROBILINOGEN,URINE NORMAL (NORMAL)
[2019-12-13 18:30] LABS: APPEARANCE,URINE CLEAR (CLEAR); COLOR,URINE DARK YELLOW (YELLOW)
[2019-12-13 18:31] LABS: AMORPHOUS SEDIMENT,UR 1+ /HPF (NEGATIVE); BACTERIA,URINE 1+ /HPF (NEGATIVE); RBC,URINE NONE SEEN /HPF (0-3); SQUAMOUS EPITHELIAL CELL,UR FEW /HPF (NEGATIVE)
[2019-12-13] MEDS ORDERED: TUSSIONEX PENNKINETIC SUSP PO PRN (18:50)
[2019-12-13] MEDS ORDERED: TYLENOL 325 MG TAB PO PRN (19:39)
[2019-12-13] MEDS ORDERED: NS 1/2 1000 ML IV 1,000 ML IV ONE (20:03)
[2019-12-13] MEDS: ROBITUSSIN DM PO SCH ×2 (20:20→22:48)
[2019-12-13] MEDS: NS 1/2 1000 ML IV 1,000 ML IV SCH (20:20)
[2019-12-13] MEDS: VIBRAMYCIN 100 MG in NS 100 ML IV + SPIKE MINIBAG* 100 ML IV SCH (20:21)
[2019-12-14] MEDS ORDERED: NS 1/2 1000 ML IV 1,000 ML IV ONE (04:42)
[2019-12-14] MEDS ORDERED: SOLU-Medrol 40 MG VIAL ONE (04:42)
[2019-12-14] MEDS: NS 1/2 1000 ML IV 1,000 ML IV SCH ×3 (05:06→22:40)
[2019-12-14 05:41] LABS: BASOPHILS % (AUTO) 0.2 % (0.2-1.0); EOSINOPHILS % (AUTO) 0.1 % (0.9-2.9); HEMATOCRIT 38.3 % (42.0-54.0); HEMOGLOBIN 13.3 g/dL (13.5-18.0); LYMPHOCYTES # (AUTO) 0.8 X10^3/uL (1.3-2.9); LYMPHOCYTES % (AUTO) 8.3 % (21.0-51.0); MEAN CORPUSCULAR HEMOGLOBIN 31.3 pg (27.0-34.0); MEAN CORPUSCULAR HGB CONC 34.8 g/dL (33.0-35.0); MEAN CORPUSCULAR VOLUME 89.8 fL (80.0-100.0); MEAN PLATELET VOLUME 9.6 fL (7.4-11.0); MONOCYTES # (AUTO) 0.5 x10^3/uL (0.3-0.8); MONOCYTES % (AUTO) 4.9 % (0.0-13.0); NEUTROPHILS # (AUTO) 8.8 x10^3/uL (2.2-4.8); NEUTROPHILS % (AUTO) 86.5 % (42.0-75.0); PLATELET COUNT 86 X10^3/uL (150.0-450.0); RED BLOOD COUNT 4.26 X10^6/uL (4.7-6.0); RED CELL DISTRIBUTION WIDTH 13.9 % (11.6-16.5); WHITE BLOOD COUNT 10.1 X10^3/uL (3.6-10.0)
[2019-12-14 05:48] LABS: ALANINE AMINOTRANSFERASE 22 Units/L (12-78); ALBUMIN 2.5 g/dL (3.4-5.0); ALKALINE PHOSPHATASE 58 Units/L (46-116); ASPARTATE AMINO TRANSFERASE 27 Units/L (15-37); BLOOD UREA NITROGEN 15 mg/dL (7-18); CARBON DIOXIDE 29.2 mmol/L (21-32); CHLORIDE 99 mmol/L (98-107); COR CA(FOR HYPOALB) 9.2 mg/dL (8.5-10.1); COR NA(FOR HYPERGLY) 136 mmol/L (136-145); CREATININE 1.36 mg/dL (0.70-1.30); SODIUM 135 mmol/L (136-145); TOTAL PROTEIN 5.9 g/dL (6.4-8.2); eGFR NON BLACK RACES 56 (>60)
[2019-12-14 05:51] LABS: ABG BASE EXCESS 2.2 mmol/L (-2.0-2.0); ABG HCO3 26.5 mmol/L (22-26)
[2019-12-14 05:52] LABS: ABG ALLEN TEST POS
[2019-12-14] MEDS ORDERED: SOLU-Medrol 40 MG VIAL IVP SCH (06:00)
[2019-12-14] MEDS ORDERED: POTASSIUM CHL 40 MEQ/NS 0.45% 500 ML IV PRN (06:07)
[2019-12-14] MEDS ORDERED: MICRO K EXTEN CAP 10 MEQ PO PRN (06:07)
[2019-12-14] MEDS ORDERED: K-DUR TAB 20 MEQ PO PRN (06:07)
[2019-12-14] MEDS ORDERED: POTASSIUM CHL 60 MEQ/NS 0.45% 500 ML IV PRN (06:07)
[2019-12-14] MEDS ORDERED: K-RIDER 10 MEQ/NS 100 ML 10 MEQ/100 ML BAG IV PRN (06:07)
[2019-12-14] MEDS ORDERED: POTASSIUM CHLORIDE LIQ 20 MEQ UDC PO PRN (06:07)
[2019-12-14] MEDS: ROBITUSSIN DM PO SCH ×4 (08:56→20:35)
[2019-12-14] MEDS: VIBRAMYCIN 100 MG in NS 100 ML IV + SPIKE MINIBAG* 100 ML IV SCH ×2 (08:57→20:35)
[2019-12-14] MEDS: VSL#3 PO SCH (08:57)
[2019-12-14] MEDS ORDERED: REMDESIVIR (INVESTIGATIONAL DRUG GS-5734) 100 MG in NS 250 ML IV 250 ML IV SCH (09:00)
[2019-12-14] MEDS: PULMICORT NEB TX 0.5 MG NEB SCH ×2 (09:20→20:50)
[2019-12-14] MEDS: DUONEB 0.5 MG/3 MG (3 mL) NEB SCH ×4 (09:20→20:50)
--- NOTE | 2019-12-14 10:50 | DR.H&P ---
H&P - History & Physical for Day of: H&P Date: 12/13/19 - Chief Complaint Chief Complaint: COUGH, SOB, FEVER, CHEST PAIN, WEAKNESS - Past Medical History Past Medical History: Coronary Artery Disease, Hypertension, Dyslipidemia - Past Surgical History Surgical History: Ortho Surgery, Other - Family History Family Medical History: Diabetes Mellitus, Coronary Artery Disease, Hypertension - Social History Does patient currently use any type of tobacco product: No Have you used tobacco products in the last 12 months: No Type of Tobacco Use: None Does any household member use tobacco: No Alcohol Use: None Drug Use: None - Medications Home Medications: alprazolam [From Xanax] Allergy (Verified 12/13/19 11:04) diazepam [From Valium] Allergy (Verified 12/13/19 11:04) - Review of Systems Constitutional: See HPI, Fever, Chills, Weakness Eyes: No Symptoms Reported ENT: No Symptoms Reported Respiratory: See HPI, Cough, Shortness of Breath, SOB with Excertion, Wheezing Cardiovascular: No Symptoms Reported Gastrointestinal: No Symptoms Reported Genitourinary: No Symptoms Reported Musculoskeletal: No Symptoms Reported Skin: No Symptoms Reported Neurological: Weakness - Physical Exam Vital Signs: Temperature 98.1 F Pulse Rate [Bilateral Radial] 68 Pulse Rate 77 Respiratory Rate 19 Blood Pressure [Right Arm] 95/59 Blood Pressure 122/74 O2 Sat by Pulse Oximetry 92 Oriented: Normal Eyes: Normal Ear: Normal Nose: Normal Throat: Normal Respiratory: Wheezes Throughout Cardiovascular: Normal : Normal Auscultation: Bowel Sounds: Normal Palpation: Normal Tenderness: Normal Skin: Normal Musculoskeletal: Normal Psychiatric: Normal Mood Description: Calm Affect: Normal Speech Pattern: Clear - Assessment/Plan (1) COVID-19 Status: Acute Plan: ADMIT, 1/2NS AT 75 ML/HR, ACTEMRA 400MG IV X 1 DOSE, REMDESIVIR 100MG IV DAILY, DOXYCYCLINE 100MG IV Q12H, DUONEBS QID, PULMICORT NEBS BID, LOVENOX 40MG SC DAILY, TUSSIONEX 5ML PO Q12H PRN, PLAQUENIL 200MG PO BID, ZINC 220MG PO DAILY, SOLU-MEDROL 125MG IV Q8H, AND THE POTASSIUM AND MAGNESIUM PROTOCOLS. (2) Pneumonia Qualifiers: Pneumonia type: due to unspecified organism Laterality: bilateral Lung location: upper lobe of lung Qualified Code(s): J18.9 - Pneumonia, unspecified organism Status: Acute (3) Hypoxia Status: Acute - Allergies Allergies/Adverse Reactions: Allergies Allergy/AdvReac Type Severity Reaction Status Date / Time alprazolam [From Xanax] Allergy Verified 12/13/19 11:04 diazepam [From Valium] Allergy Verified 12/13/19 11:04
[2019-12-14] MEDS ORDERED: ACTEMRA 400 MG in NS 100 ML IV 80 ML IV NR (11:00)
[2019-12-14] MEDS: VENTOLIN or PROAIR HFA IN SCH (11:02)
[2019-12-14] MEDS ORDERED: DUONEB 0.5 MG/3 MG (3 mL) NEB ONE (11:55)
[2019-12-14] MEDS: PLAQUENIL PO SCH ×2 (12:00→20:35)
[2019-12-14] MEDS: ZINC SULFATE PO SCH (12:00)
[2019-12-14] MEDS: LOVENOX INJ 40 MG SYR SC SCH (12:00)
[2019-12-14] MEDS: REMDESIVIR (INVESTIGATIONAL DRUG GS-5734) 100 MG in NS 250 ML IV 250 ML IV SCH (12:00)
[2019-12-14] MEDS: MAGNESIUM SULFATE 1 GRAM/100 mL PREMIX 1 GM/100 ML BAG IV PRN ×5 (14:01→23:45)
[2019-12-14] MEDS: SOLU-Medrol 125 MG VIAL IVP SCH ×2 (14:03→21:00)
[2019-12-15] MEDS: MAGNESIUM SULFATE 1 GRAM/100 mL PREMIX 1 GM/100 ML BAG IV PRN (00:56)
[2019-12-15] MEDS: SOLU-Medrol 125 MG VIAL IVP SCH ×3 (05:30→21:34)
[2019-12-15 05:41] LABS: BASOPHILS % (AUTO) 0.1 % (0.2-1.0); HEMATOCRIT 37.7 % (42.0-54.0); LYMPHOCYTES # (AUTO) 0.6 X10^3/uL (1.3-2.9); LYMPHOCYTES % (AUTO) 5.6 % (21.0-51.0); MEAN CORPUSCULAR HEMOGLOBIN 30.9 pg (27.0-34.0); MEAN CORPUSCULAR HGB CONC 34.5 g/dL (33.0-35.0); MEAN CORPUSCULAR VOLUME 89.6 fL (80.0-100.0); MEAN PLATELET VOLUME 9.9 fL (7.4-11.0); MONOCYTES # (AUTO) 0.3 x10^3/uL (0.3-0.8); MONOCYTES % (AUTO) 3.3 % (0.0-13.0); NEUTROPHILS # (AUTO) 9.5 x10^3/uL (2.2-4.8); PLATELET COUNT 120 X10^3/uL (150.0-450.0); RED BLOOD COUNT 4.21 X10^6/uL (4.7-6.0); RED CELL DISTRIBUTION WIDTH 14.1 % (11.6-16.5); WHITE BLOOD COUNT 10.4 X10^3/uL (3.6-10.0)
[2019-12-15 05:51] LABS: ALANINE AMINOTRANSFERASE 25 Units/L (12-78); ALBUMIN 2.5 g/dL (3.4-5.0); ALKALINE PHOSPHATASE 61 Units/L (46-116); ASPARTATE AMINO TRANSFERASE 26 Units/L (15-37); BLOOD UREA NITROGEN 16 mg/dL (7-18); CALCIUM 8.4 mg/dL (8.5-10.1); CHLORIDE 100 mmol/L (98-107); COR CA(FOR HYPOALB) 9.6 mg/dL (8.5-10.1); COR NA(FOR HYPERGLY) 139 mmol/L (136-145); CREATININE 1.41 mg/dL (0.70-1.30); SODIUM 134 mmol/L (136-145); TOTAL PROTEIN 6.1 g/dL (6.4-8.2); eGFR NON BLACK RACES 54 (>60)
--- NOTE | 2019-12-15 05:58 | RAD ---
HISTORYSOB pneumoniaSTUDYAP [id number]/2020FINDINGSMinimal linear infiltrate/atelectasis in the mid-lungs, bilaterally. No definite consolidation, edema, pleural fluid or pneumothorax. Heart size is stable.IMPRESSIONNo significant change since prior.Electronically signed by: LEDA RUEDA (Dec 15, 2019 05:57:27)
[2019-12-15 06:23] LABS: BAND NEUTROPHILS % 3 % (0-10); PLATELET MORPHOLOGY COMMENT NORMAL (NORMAL)
[2019-12-15] MEDS: KLOR-CON PO PRN (06:35)
[2019-12-15] MEDS: DUONEB 0.5 MG/3 MG (3 mL) NEB SCH ×4 (08:50→21:43)
[2019-12-15] MEDS: PULMICORT NEB TX 0.5 MG NEB SCH ×2 (08:50→21:43)
[2019-12-15] MEDS: LOVENOX INJ 40 MG SYR SC SCH (10:15)
[2019-12-15] MEDS: PLAQUENIL PO SCH ×2 (10:16→21:33)
[2019-12-15] MEDS: REMDESIVIR (INVESTIGATIONAL DRUG GS-5734) 100 MG in NS 250 ML IV 250 ML IV SCH (10:16)
[2019-12-15] MEDS: VIBRAMYCIN 100 MG in NS 100 ML IV + SPIKE MINIBAG* 100 ML IV SCH ×2 (10:17→21:34)
[2019-12-15] MEDS: ZINC SULFATE PO SCH (10:17)
[2019-12-15] MEDS: VSL#3 PO SCH (10:17)
[2019-12-15] MEDS: ROBITUSSIN DM PO SCH ×4 (10:18→21:34)
[2019-12-15] MEDS ORDERED: MAG-OX TAB ONE (10:19)
[2019-12-15] MEDS: MAG-OX TAB PO SCH (10:20)
[2019-12-15] MEDS ORDERED: NS 1/2 1000 ML IV 1,000 ML IV ONE (23:00)
[2019-12-15] MEDS: NS 1/2 1000 ML IV 1,000 ML IV SCH (23:04)
[2019-12-16] MEDS: NS 1/2 1000 ML IV 1,000 ML IV SCH ×4 (05:23→20:51)
[2019-12-16] MEDS: SOLU-Medrol 125 MG VIAL IVP SCH ×3 (05:23→21:36)
[2019-12-16 05:37] LABS: BASOPHILS % (AUTO) 0.1 % (0.2-1.0); HEMATOCRIT 38.3 % (42.0-54.0); HEMOGLOBIN 12.9 g/dL (13.5-18.0); LYMPHOCYTES # (AUTO) 0.6 X10^3/uL (1.3-2.9); LYMPHOCYTES % (AUTO) 2.9 % (21.0-51.0); MEAN CORPUSCULAR HEMOGLOBIN 30.3 pg (27.0-34.0); MEAN CORPUSCULAR HGB CONC 33.7 g/dL (33.0-35.0); MEAN CORPUSCULAR VOLUME 89.9 fL (80.0-100.0); MEAN PLATELET VOLUME 9.6 fL (7.4-11.0); MONOCYTES # (AUTO) 0.6 x10^3/uL (0.3-0.8); MONOCYTES % (AUTO) 2.9 % (0.0-13.0); NEUTROPHILS # (AUTO) 17.9 x10^3/uL (2.2-4.8); NEUTROPHILS % (AUTO) 94.1 % (42.0-75.0); PLATELET COUNT 176 X10^3/uL (150.0-450.0); RED BLOOD COUNT 4.25 X10^6/uL (4.7-6.0); RED CELL DISTRIBUTION WIDTH 14.3 % (11.6-16.5)
[2019-12-16 05:52] LABS: ALANINE AMINOTRANSFERASE 27 Units/L (12-78); ALBUMIN 2.7 g/dL (3.4-5.0); ALKALINE PHOSPHATASE 64 Units/L (46-116); ASPARTATE AMINO TRANSFERASE 22 Units/L (15-37); BLOOD UREA NITROGEN 20 mg/dL (7-18); CALCIUM 8.7 mg/dL (8.5-10.1); CARBON DIOXIDE 21.5 mmol/L (21-32); CHLORIDE 102 mmol/L (98-107); COR CA(FOR HYPOALB) 9.7 mg/dL (8.5-10.1); COR NA(FOR HYPERGLY) 141 mmol/L (136-145); CREATININE 1.42 mg/dL (0.70-1.30); SODIUM 136 mmol/L (136-145); TOTAL PROTEIN 6.1 g/dL (6.4-8.2); eGFR NON BLACK RACES 53 (>60)
[2019-12-16 05:57] LABS: ABG BASE EXCESS -2.8 mmol/L (-2.0-2.0); ABG HCO3 20.4 mmol/L (22-26)
[2019-12-16 06:12] LABS: WHITE BLOOD COUNT 19.1 X10^3/uL (3.6-10.0)
[2019-12-16 06:13] LABS: BAND NEUTROPHILS % 4 % (0-10); PLATELET MORPHOLOGY COMMENT NORMAL (NORMAL)
--- NOTE | 2019-12-16 06:58 | RAD ---
HISTORYSOB pneumoniaSTUDYPortable AP [id number]/01/2020FINDINGSThere is no change in appearance of the chest since 1 day earlier. Mild perihilar streaky densities persist. No new consolidation, extrapulmonary air collection or developing pleural effusion.IMPRESSIONNo change in appearance of the chest since 1 day prior.Electronically signed by: LEDA RUEDA (Dec 16, 2019 06:57:27)
[2019-12-16] MEDS: PULMICORT NEB TX 0.5 MG NEB SCH ×2 (08:10→20:55)
[2019-12-16] MEDS: DUONEB 0.5 MG/3 MG (3 mL) NEB SCH ×4 (08:10→20:55)
[2019-12-16] MEDS: MAG-OX TAB PO SCH (10:02)
[2019-12-16] MEDS: VSL#3 PO SCH (10:02)
[2019-12-16] MEDS: ROBITUSSIN DM PO SCH ×4 (10:03→20:50)
[2019-12-16] MEDS: ZINC SULFATE PO SCH (10:03)
[2019-12-16] MEDS: VIBRAMYCIN 100 MG in NS 100 ML IV + SPIKE MINIBAG* 100 ML IV SCH ×2 (10:03→20:50)
[2019-12-16] MEDS: LOVENOX INJ 40 MG SYR SC SCH (10:04)
[2019-12-16] MEDS: PLAQUENIL PO SCH (10:04)
[2019-12-16] MEDS: REMDESIVIR (INVESTIGATIONAL DRUG GS-5734) 100 MG in NS 250 ML IV 250 ML IV SCH (11:23)
--- NOTE | 2019-12-16 11:28 | PCM.PROG ---
Progress Note - Progress Note for Day of Date of Exam: 12/15/19 - Subjective Subjective: IS BEING TREATED FOR PNEUMONIA DUE TO COVID-19 AND HYPOXIA. TODAY, HE IS ALERT AND ORIENTED, LYING IN BED ON MORNING ROUNDS. HE CONTINUES WITH COMPLAINTS OF COUGH, SOB, AND WEAKNESS. HE DENIES IMPROVEMENT IN SYMPTOMS SINCE ADMISSION. HE REPORTS THAT SHORTNESS OF BREATH HAS WORSENED THIS MORNING. ON EXAMINATION, HEART IS REGULAR IN RATE AND RHYTHM. BILATERAL LUNGS ARE NOTED WITH SCATTERED WHEEZING AND RHONCHI THROUGHOUT. ABDOMEN IS ROUND, SOFT, AND NON-TENDER WITH NORMAL BOWEL SOUNDS NOTED IN ALL QUADRANTS. HIS VITALS THIS MORNING ARE: 97.7-71-23-94%-123/68. LABS WERE OBTAINED. ABNORMAL LAB VALUES INCLUDE THE FOLLOWING: WBC 10.4, RBC 4.21, HGB 13.0, HCT 37.7, PLT COUNT 120, S ODIUM 134, POTASSIUM 3.0, CARBON DIOXIDE 19.0, CREATININE 1.41, GLUCOSE 304, CALCIUM 8.4, FERRITIN 1531, CRP 150.20, TOTAL PROTEIN 6.1, ALBUMIN 2.5. BLOOD CULTURES ARE PENDING. A CHEST XRAY WAS OBTAINED AND REVEALED: Minimal linear infiltrate/atelectasis in the mid-lungs, bilaterally. No definite consolidation, edema, pleural fluid or pneumothorax. Heart size is stable. HE IS CURRENTLY RECEIVING 1/2NS AT 75 ML/HR, REMDESIVIR 100MG IV DAILY, DOXYCYCLINE 100MG IV Q12H, DUONEBS QID, PULMICORT NEBS BID, LOVENOX 40MG SC DAILY, TUSSIONEX 5ML PO Q12H PRN, PLAQUENIL 200MG PO BID, ZINC 220MG PO DAILY, SOLU-MEDROL 125MG IV Q8H, AND THE POTASSIUM AND MAGNESIUM PROTOCOLS. WE WILL CONTINUE WITH CURRENT PLAN OF CARE TODAY. OTHERWISE, WE WILL FOLLOW UP WITH AM LABS AND CONTINUE TO MONITOR. - Past Medical Family Social History Past Med/Fam/Surg Hx: No changes since H&P Allergies: Allergies alprazolam [From Xanax] Allergy (Verified 12/13/19 11:04) diazepam [From Valium] Allergy (Verified 12/13/19 11:04) - Review of Systems ROS: No change since H&P - Vital Signs and I&O's Vital Signs: Temperature 97.6 F Pulse Rate [Bilateral Radial] 75 Pulse Rate 76 Respiratory Rate 29 Blood Pressure [Right Arm] 130/65 Blood Pressure 122/74 O2 Sat by Pulse Oximetry 91 Intake and Output: Intake & Output 12/13/19 12/14/19 12/15/19 12/16/19 11:59 11:59 11:59 11:59 Intake Total 2550 / 2550 2385 / 2385 3637 / 3637 Output Total 550 / 550 700 / 700 Balance 1999 2385 / 2385 2937 / 2937 - Physical Exam Oriented: Normal Eyes: Normal Ear: Normal Nose: Normal Throat: Normal Respiratory: Generalized, Wheezes, Rhonchi Cardiovascular: Normal : Normal Auscultation: Bowel Sounds: Normal Palpation: Normal Tenderness: Normal Skin: Normal Musculoskeletal: Normal Psychiatric: Normal Mood Description: Calm Affect: Normal Speech Pattern: Clear, Appropriate - Laboratory and Diagnostics Result Diagrams: 12/16/19 04:36 12/16/19 04:36 Labs: 12/13/19 11:44 Blood Blood Culture - Preliminary 12/13/19 11:40 Blood Blood Culture - Preliminary Laboratory WBC 19.1 X10^3/uL (3.6-10.0) H D 12/16/19 04:36 RBC 4.25 X10^6/uL (4.7-6.0) L 12/16/19 04:36 Hgb 12.9 g/dL (13.5-18.0) L 12/16/19 04:36 Hct 38.3 % (42.0-54.0) L 12/16/19 04:36 MCV 89.9 fL (80.0-100.0) 12/16/19 04:36 MCH 30.3 pg (27.0-34.0) 12/16/19 04:36 MCHC 33.7 g/dL (33.0-35.0) 12/16/19 04:36 RDW 14.3 % (11.6-16.5) 12/16/19 04:36 Plt Count 176 X10^3/uL (150.0-450.0) 12/16/19 04:36 Plt Count Comment Adequate (ADEQUATE) 12/16/19 04:36 MPV 9.6 fL (7.4-11.0) 12/16/19 04:36 Neut % (Auto) 94.1 % (42.0-75.0) H 12/16/19 04:36 Lymph % (Auto) 2.9 % (21.0-51.0) L 12/16/19 04:36 [place] % (Auto) 2.9 % (0.0-13.0) 12/16/19 04:36 Eos % (Auto) 0.0 % (0.9-2.9) L 12/16/19 04:36 Baso % (Auto) 0.1 % (0.2-1.0) L 12/16/19 04:36 Neut # (Auto) 17.9 x10^3/uL (2.2-4.8) H 12/16/19 04:36 Lymph # (Auto) 0.6 X10^3/uL (1.3-2.9) L 12/16/19 04:36 [place] # (Auto) 0.6 x10^3/uL (0.3-0.8) 12/16/19 04:36 Eos # (Auto) 0.0 x10^3/uL (0.0-0.2) 12/16/19 04:36 Baso # (Auto) 0.0 X10^3/uL (0.0-0.1) 12/16/19 04:36 Absolute Nucleated RBC 0.1 /100WBC 12/16/19 04:36 Total Counted 100 12/16/19 04:36 Neutrophils % (Manual) 93 % (39-76) H 12/16/19 04:36 Band Neutrophils % 4 % (0-10) 12/16/19 04:36 Lymphocytes % (Manual) 2 % (13-43) L 12/16/19 04:36 Monocytes % (Manual) 1 % (4-9) L 12/16/19 04:36 Plt Morphology Comment Normal (NORMAL) 12/16/19 04:36 RBC Morphology Normal (NORMAL) 12/16/19 04:[address] [facility] 12/16/19 05:55 ABG pH 7.440 (7.35-7.45) 12/16/19 05:55 ABG pCO2 30.0 mmHg (35.0-45.0) L 12/16/19 05:55 ABG pO2 65.0 mmHg (80.0-100.0) L 12/16/19 05:55 ABG HCO3 20.4 mmol/L (22-26) L 12/16/19 05:55 ABG O2 Saturation 93.0 % (90-100) 12/16/19 05:55 ABG Base Excess -2.8 mmol/L (-2.0-2.0) L 12/16/19 05:55 Evan Test N/a 12/16/19 05:55 A-a Gradient 154.0 mmHg 12/16/19 05:55 FiO2 36.0 12/16/19 05:55 Blood Gas Comments Pt darcy well eb 12/16/19 05:55 Sodium 136 mmol/L (136-145) 12/16/19 04:36 Corrected Sodium 141 mmol/L (136-145) 12/16/19 04:36 Potassium 3.4 mmol/L (3.5-5.1) L 12/16/19 04:36 Chloride 102 mmol/L (98-107) 12/16/19 04:36 Carbon Dioxide 21.5 mmol/L (21-32) 12/16/19 04:36 BUN 20 mg/dL (7-18) H 12/16/19 04:36 Creatinine 1.42 mg/dL (0.70-1.30) H 12/16/19 04:36 Est GFR (MDRD) Af Amer > 60 (>60) 12/16/19 04:36 Est GFR (MDRD) Non-Af 53 (>60) L 12/16/19 04:36 Glucose 323 mg/dL (65-99) H 12/16/19 04:36 Lactic Acid 1.1 mmol/L (0.4-2.0) 12/13/19 11:44 Calcium 8.7 mg/dL (8.5-10.1) 12/16/19 04:36 Corrected Calcium 9.7 mg/dL (8.5-10.1) 12/16/19 04:36 Magnesium 2.2 mg/dL (1.7-2.9) 12/15/19 04:25 Ferritin 1195 ng/mL (26-388) H 12/16/19 04:36 Total Bilirubin 0.40 mg/dL (0.2-1.0) 12/16/19 04:36 AST 22 Units/L (15-37) 12/16/19 04:36 ALT 27 Units/L (12-78) 12/16/19 04:36 Alkaline Phosphatase 64 Units/L (46-116) 12/16/19 04:36 Lactate Dehydrogenase 187 Units/L (85-227) 12/13/19 11:44 Creatine Kinase 84 Units/L (39-308) 12/13/19 11:44 CK-MB (CK-2) < 1.0 ng/mL (0-4.0) 12/13/19 11:44 CK/CKMB % Calc 1.2 % (<4) 12/13/19 11:44 Troponin I < 0.02 ng/mL (0-1.5) 12/13/19 11:44 C-Reactive Protein 82.80 mg/L (0-3.0) H 12/16/19 04:36 Total Protein 6.1 g/dL (6.4-8.2) L 12/16/19 04:36 Albumin 2.7 g/dL (3.4-5.0) L 12/16/19 04:36 Globulin 3.4 g/dL (2.5-4.5) 12/16/19 04:36 Albumin/Globulin Ratio 0.8 Ratio (1.1-2.1) L 12/16/19 04:36 Specimen Type Clean catch urine 12/13/19 17:20 Urine Color Dark yellow (YELLOW) 12/13/19 17:20 Urine Appearance Clear (CLEAR) 12/13/19 17:20 Urine pH 5.0 (5.0 - 8.0) 12/13/19 17:20 Ur Specific [place] 1.025 (1.000-1.030) 12/13/19 17:20 Urine Protein 2+ (NEGATIVE) 12/13/19 17:20 Urine Glucose (UA) Negative (NEGATIVE) 12/13/19 17:20 Urine Ketones 2+ (NEGATIVE) 12/13/19 17:20 Urine Occult Blood Negative (NEGATIVE) 12/13/19 17:20 Urine Nitrite Negative (NEGATIVE) 12/13/19 17:20 Urine Bilirubin Negative (NEGATIVE) 12/13/19 17:20 Urine Urobilinogen Normal (NORMAL) 12/13/19 17:20 Ur Leukocyte Esterase Negative (NEGATIVE) 12/13/19 17:20 Urine RBC None seen /HPF (0-3) 12/13/19 17:20 Urine WBC None seen /HPF (0-5) 12/13/19 17:20 Ur Squamous Epith Cells Few /HPF (NEGATIVE) 12/13/19 17:20 Amorphous Sediment 1+ /HPF (NEGATIVE) 12/13/19 17:20 Urine Bacteria 1+ /HPF (NEGATIVE) 12/13/19 17:20 Ur Culture Indicated? No/not indicated 12/13/19 17:20 - Plan (1) COVID-19 Status: Acute Plan: ADMIT, 1/2NS AT 75 ML/HR, REMDESIVIR 100MG IV DAILY, DOXYCYCLINE 100MG IV Q12H, DUONEBS QID, PULMICORT NEBS BID, LOVENOX 40MG SC DAILY, TUSSIONEX 5ML PO Q12H PRN, PLAQUENIL 200MG PO BID, ZINC 220MG PO DAILY, SOLU-MEDROL 125MG IV Q8H, AND THE POTASSIUM AND MAGNESIUM PROTOCOLS. (2) Pneumonia Status: Acute Qualifiers: Pneumonia type: due to unspecified organism Laterality: bilateral Lung location: upper lobe of lung Qualified Code(s): J18.9 - Pneumonia, unspecified organism (3) Hypoxia Status: Acute
[2019-12-16] MEDS: KLOR-CON PO PRN (16:28)
[2019-12-16] MEDS ORDERED: NS 1/2 1000 ML IV 1,000 ML IV ONE (20:17)
[2019-12-17 04:21] LABS: ABG ALLEN TEST POS; ABG BASE EXCESS -0.1 mmol/L (-2.0-2.0); ABG HCO3 23.9 mmol/L (22-26)
[2019-12-17] MEDS: SOLU-Medrol 125 MG VIAL IVP SCH ×3 (05:04→21:32)
[2019-12-17 05:12] LABS: BASOPHILS % (AUTO) 0.2 % (0.2-1.0); HEMATOCRIT 38.1 % (42.0-54.0); HEMOGLOBIN 12.8 g/dL (13.5-18.0); LYMPHOCYTES # (AUTO) 0.5 X10^3/uL (1.3-2.9); LYMPHOCYTES % (AUTO) 3.1 % (21.0-51.0); MEAN CORPUSCULAR HEMOGLOBIN 30.5 pg (27.0-34.0); MEAN CORPUSCULAR HGB CONC 33.5 g/dL (33.0-35.0); MEAN CORPUSCULAR VOLUME 90.8 fL (80.0-100.0); MEAN PLATELET VOLUME 9.4 fL (7.4-11.0); MONOCYTES # (AUTO) 0.7 x10^3/uL (0.3-0.8); MONOCYTES % (AUTO) 4.2 % (0.0-13.0); NEUTROPHILS # (AUTO) 14.3 x10^3/uL (2.2-4.8); NEUTROPHILS % (AUTO) 92.5 % (42.0-75.0); PLATELET COUNT 192 X10^3/uL (150.0-450.0); RED BLOOD COUNT 4.19 X10^6/uL (4.7-6.0); RED CELL DISTRIBUTION WIDTH 14.6 % (11.6-16.5); WHITE BLOOD COUNT 15.5 X10^3/uL (3.6-10.0)
[2019-12-17 05:26] LABS: ALANINE AMINOTRANSFERASE 27 Units/L (12-78); ALBUMIN 2.5 g/dL (3.4-5.0); ALKALINE PHOSPHATASE 54 Units/L (46-116); ASPARTATE AMINO TRANSFERASE 18 Units/L (15-37); BLOOD UREA NITROGEN 22 mg/dL (7-18); CALCIUM 8.7 mg/dL (8.5-10.1); CARBON DIOXIDE 24.2 mmol/L (21-32); CHLORIDE 104 mmol/L (98-107); COR CA(FOR HYPOALB) 9.9 mg/dL (8.5-10.1); COR NA(FOR HYPERGLY) 143 mmol/L (136-145); CREATININE 1.29 mg/dL (0.70-1.30); SODIUM 137 mmol/L (136-145); TOTAL PROTEIN 5.7 g/dL (6.4-8.2); eGFR NON BLACK RACES 60 (>60)
[2019-12-17 06:06] LABS: BAND NEUTROPHILS % 2 % (0-10); PLATELET MORPHOLOGY COMMENT NORMAL (NORMAL)
--- NOTE | 2019-12-17 06:18 | RAD ---
HISTORYShortness of breathSTUDYChest AP [id number]/02/2020FINDINGSThe heart is within normal limits in size. The chantal are normal. The lungs are mildly hypoinflated but free of acute alveolar and ground-glass infiltrates. Bilateral foci of subsegmental atelectasis are unchanged. No pleural effusions are identified. Bony thorax is unremarkable.IMPRESSIONLungs hypoinflated but free of acute infiltratesBilateral peripheral foci of subsegmental atelectasis, unchangedElectronically signed by: TAVON WELLS (Dec 17, 2019 06:17:01)
[2019-12-17] MEDS ORDERED: REMDESIVIR (INVESTIGATIONAL DRUG GS-5734) IV ONE (08:00)
[2019-12-17] MEDS: PULMICORT NEB TX 0.5 MG NEB SCH ×2 (09:10→21:40)
[2019-12-17] MEDS: DUONEB 0.5 MG/3 MG (3 mL) NEB SCH ×4 (09:10→21:40)
[2019-12-17] MEDS: MAG-OX TAB PO SCH (09:28)
[2019-12-17] MEDS: LOVENOX INJ 40 MG SYR SC SCH (09:28)
[2019-12-17] MEDS: ROBITUSSIN DM PO SCH ×4 (09:29→20:37)
[2019-12-17] MEDS: VSL#3 PO SCH (09:29)
[2019-12-17] MEDS: ZINC SULFATE PO SCH (09:29)
[2019-12-17] MEDS: VIBRAMYCIN 100 MG in NS 100 ML IV + SPIKE MINIBAG* 100 ML IV SCH ×2 (09:55→20:37)
[2019-12-17] MEDS: REMDESIVIR (INVESTIGATIONAL DRUG GS-5734) 100 MG in NS 250 ML IV 250 ML IV SCH (09:55)
[2019-12-17 10:31] VITALS: BMI 29.8
[2019-12-17] MEDS: MAGNESIUM SULFATE 1 GRAM/100 mL PREMIX 1 GM/100 ML BAG IV PRN (11:34)
[2019-12-17] MEDS: NS 1/2 1000 ML IV 1,000 ML IV SCH ×2 (12:59→20:37)
[2019-12-17] MEDS ORDERED: NS 1/2 1000 ML IV 1,000 ML IV ONE (18:56)
--- NOTE | 2019-12-17 19:29 | PCM.PROG ---
Progress Note - Progress Note for Day of Date of Exam: 12/16/19 - Subjective Subjective: IS BEING TREATED FOR PNEUMONIA DUE TO COVID-19 AND HYPOXIA. TODAY, HE IS ALERT AND ORIENTED, LYING IN BED ON MORNING ROUNDS. HE CONTINUES WITH COMPLAINTS OF COUGH, SOB, AND WEAKNESS. HE DENIES IMPROVEMENT IN SYMPTOMS SINCE ADMISSION. HE REPORTS THAT SHORTNESS OF BREATH HAS WORSENED THIS MORNING. ON EXAMINATION, HEART IS REGULAR IN RATE AND RHYTHM. BILATERAL LUNGS ARE NOTED WITH SCATTERED WHEEZING AND RHONCHI THROUGHOUT. ABDOMEN IS ROUND, SOFT, AND NON-TENDER WITH NORMAL BOWEL SOUNDS NOTED IN ALL QUADRANTS. HIS VITALS THIS MORNING ARE: 97.9-62-21-96%-120/66. LABS WERE OBTAINED. ABNORMAL LAB VALUES INCLUDE THE FOLLOWING: WBC 19.1, RBC 4.25, HGB 12.9, HCT 38.3, POTASSIUM 3.4, B UN 20, CREATININE 1.42, GLUCOSE 323, FERRITIN 1195, CRP 82.80, TOTAL PROTEIN 6.1, ALBUMIN 2.7. ABG REVEALED: PH 7.440, PC02 30.0, P02 65.0, HC03 20.4, BASE EXCESS -2.8, FI02 36.0. BLOOD CULTURES ARE PENDING. A CHEST XRAY WAS OBTAINED AND REVEALED: No change in appearance of the chest since 1 day prior. HE IS CURRENTLY RECEIVING 1/2NS AT 75 ML/HR, REMDESIVIR 100MG IV DAILY, DOXYCYCLINE 100MG IV Q12H, DUONEBS QID, PULMICORT NEBS BID, LOVENOX 40MG SC DAILY, TUSSIONEX 5ML PO Q12H PRN, ZINC 220MG PO DAILY, SOLU-MEDROL 125MG IV Q8H, AND THE POTASSIUM AND MAGNESIUM PROTOCOLS. WE WILL CONTINUE WITH CURRENT PLAN OF CARE TODAY. OTHERWISE, WE WILL FOLLOW UP WITH AM LABS AND CONTINUE TO MONITOR. - Past Medical Family Social History Past Med/Fam/Surg Hx: No changes since H&P Allergies: Allergies alprazolam [From Xanax] Allergy (Verified 12/13/19 11:04) diazepam [From Valium] Allergy (Verified 12/13/19 11:04) - Review of Systems ROS: No change since H&P - Vital Signs and I&O's Vital Signs: Temperature 98.3 F Pulse Rate [Bilateral Radial] 68 Pulse Rate 74 Respiratory Rate 23 Blood Pressure [Right Arm] 125/64 Blood Pressure 122/74 O2 Sat by Pulse Oximetry 95 Intake and Output: Intake & Output 12/15/19 12/16/19 12/17/19 12/18/19 11:59 11:59 11:59 11:59 Intake Total 2385 / 2385 3637 / 3637 3938 / 3938 1652 / 1652 Output Total 700 / 700 1400 / 1400 900 / 900 Balance 2385 / 2385 2937 / 2937 2538 / 2538 752 / 752 - Physical Exam Oriented: Normal Eyes: Normal Ear: Normal Nose: Normal Throat: Normal Respiratory: Generalized, Wheezes, Rhonchi Cardiovascular: Normal : Normal Auscultation: Bowel Sounds: Normal Palpation: Normal Tenderness: Normal Skin: Normal Musculoskeletal: Normal Psychiatric: Normal Mood Description: Calm Affect: Normal Speech Pattern: Clear, Appropriate - Laboratory and Diagnostics Result Diagrams: 12/17/19 04:24 12/17/19 04:24 Labs: 12/13/19 11:44 Blood Blood Culture - Preliminary 12/13/19 11:40 Blood Blood Culture - Preliminary Laboratory WBC 15.5 X10^3/uL (3.6-10.0) H 12/17/19 04:24 RBC 4.19 X10^6/uL (4.7-6.0) L 12/17/19 04:24 Hgb 12.8 g/dL (13.5-18.0) L 12/17/19 04:24 Hct 38.1 % (42.0-54.0) L 12/17/19 04:24 MCV 90.8 fL (80.0-100.0) 12/17/19 04:24 MCH 30.5 pg (27.0-34.0) 12/17/19 04:24 MCHC 33.5 g/dL (33.0-35.0) 12/17/19 04:24 RDW 14.6 % (11.6-16.5) 12/17/19 04:24 Plt Count 192 X10^3/uL (150.0-450.0) 12/17/19 04:24 Plt Count Comment Adequate (ADEQUATE) 12/17/19 04:24 MPV 9.4 fL (7.4-11.0) 12/17/19 04:24 Neut % (Auto) 92.5 % (42.0-75.0) H 12/17/19 04:24 Lymph % (Auto) 3.1 % (21.0-51.0) L 12/17/19 04:24 [place] % (Auto) 4.2 % (0.0-13.0) 12/17/19 04:24 Eos % (Auto) 0.0 % (0.9-2.9) L 12/17/19 04:24 Baso % (Auto) 0.2 % (0.2-1.0) 12/17/19 04:24 Neut # (Auto) 14.3 x10^3/uL (2.2-4.8) H 12/17/19 04:24 Lymph # (Auto) 0.5 X10^3/uL (1.3-2.9) L 12/17/19 04:24 [place] # (Auto) 0.7 x10^3/uL (0.3-0.8) 12/17/19 04:24 Eos # (Auto) 0.0 x10^3/uL (0.0-0.2) 12/17/19 04:24 Baso # (Auto) 0.0 X10^3/uL (0.0-0.1) 12/17/19 04:24 Absolute Nucleated RBC 0.1 /100WBC 12/17/19 04:24 Total Counted 100 12/17/19 04:24 Neutrophils % (Manual) 91 % (39-76) H 12/17/19 04:24 Band Neutrophils % 2 % (0-10) 12/17/19 04:24 Lymphocytes % (Manual) 5 % (13-43) L 12/17/19 04:24 Monocytes % (Manual) 2 % (4-9) L 12/17/19 04:24 Plt Morphology Comment Normal (NORMAL) 12/17/19 04:24 RBC Morphology Normal (NORMAL) 12/17/19 04:24 Sample Site Lr 12/17/19 05:00 ABG pH 7.430 (7.35-7.45) 12/17/19 05:00 ABG pCO2 36.0 mmHg (35.0-45.0) 12/17/19 05:00 ABG pO2 71.0 mmHg (80.0-100.0) L 12/17/19 05:00 ABG HCO3 23.9 mmol/L (22-26) 12/17/19 05:00 ABG O2 Saturation 95.0 % (90-100) 12/17/19 05:00 ABG Base Excess -0.1 mmol/L (-2.0-2.0) 12/17/19 05:00 Evan Test Pos 12/17/19 05:00 A-a Gradient 112.0 mmHg 12/17/19 05:00 FiO2 32.0 12/17/19 05:00 Blood Gas Comments Rico well ae 12/17/19 05:00 Sodium 137 mmol/L (136-145) 12/17/19 04:24 Corrected Sodium 143 mmol/L (136-145) 12/17/19 04:24 Potassium 3.9 mmol/L (3.5-5.1) 12/17/19 04:24 Chloride 104 mmol/L (98-107) 12/17/19 04:24 Carbon Dioxide 24.2 mmol/L (21-32) 12/17/19 04:24 BUN 22 mg/dL (7-18) H 12/17/19 04:24 Creatinine 1.29 mg/dL (0.70-1.30) 12/17/19 04:24 Est GFR (MDRD) Af Amer > 60 (>60) 12/17/19 04:24 Est GFR (MDRD) Non-Af 60 (>60) 12/17/19 04:24 Glucose 336 mg/dL (65-99) H 12/17/19 04:24 Lactic Acid 1.1 mmol/L (0.4-2.0) 12/13/19 11:44 Calcium 8.7 mg/dL (8.5-10.1) 12/17/19 04:24 Corrected Calcium 9.9 mg/dL (8.5-10.1) 12/17/19 04:24 Magnesium 2.2 mg/dL (1.7-2.9) 12/15/19 04:25 Ferritin 677 ng/mL (26-388) H 12/17/19 04:24 Total Bilirubin 0.40 mg/dL (0.2-1.0) 12/17/19 04:24 AST 18 Units/L (15-37) 12/17/19 04:24 ALT 27 Units/L (12-78) 12/17/19 04:24 Alkaline Phosphatase 54 Units/L (46-116) 12/17/19 04:24 Lactate Dehydrogenase 187 Units/L (85-227) 12/13/19 11:44 Creatine Kinase 84 Units/L (39-308) 12/13/19 11:44 CK-MB (CK-2) < 1.0 ng/mL (0-4.0) 12/13/19 11:44 CK/CKMB % Calc 1.2 % (<4) 12/13/19 11:44 Troponin I < 0.02 ng/mL (0-1.5) 12/13/19 11:44 C-Reactive Protein 46.70 mg/L (0-3.0) H 12/17/19 04:24 Total Protein 5.7 g/dL (6.4-8.2) L 12/17/19 04:24 Albumin 2.5 g/dL (3.4-5.0) L 12/17/19 04:24 Globulin 3.2 g/dL (2.5-4.5) 12/17/19 04:24 Albumin/Globulin Ratio 0.8 Ratio (1.1-2.1) L 12/17/19 04:24 Specimen Type Clean catch urine 12/13/19 17:20 Urine Color Dark yellow (YELLOW) 12/13/19 17:20 Urine Appearance Clear (CLEAR) 12/13/19 17:20 Urine pH 5.0 (5.0 - 8.0) 12/13/19 17:20 Ur Specific [place] 1.025 (1.000-1.030) 12/13/19 17:20 Urine Protein 2+ (NEGATIVE) 12/13/19 17:20 Urine Glucose (UA) Negative (NEGATIVE) 12/13/19 17:20 Urine Ketones 2+ (NEGATIVE) 12/13/19 17:20 Urine Occult Blood Negative (NEGATIVE) 12/13/19 17:20 Urine Nitrite Negative (NEGATIVE) 12/13/19 17:20 Urine Bilirubin Negative (NEGATIVE) 12/13/19 17:20 Urine Urobilinogen Normal (NORMAL) 12/13/19 17:20 Ur Leukocyte Esterase Negative (NEGATIVE) 12/13/19 17:20 Urine RBC None seen /HPF (0-3) 12/13/19 17:20 Urine WBC None seen /HPF (0-5) 12/13/19 17:20 Ur Squamous Epith Cells Few /HPF (NEGATIVE) 12/13/19 17:20 Amorphous Sediment 1+ /HPF (NEGATIVE) 12/13/19 17:20 Urine Bacteria 1+ /HPF (NEGATIVE) 12/13/19 17:20 Ur Culture Indicated? No/not indicated 12/13/19 17:20 - Plan (1) COVID-19 Status: Acute Plan: 1/2NS AT 75 ML/HR, REMDESIVIR 100MG IV DAILY, DOXYCYCLINE 100MG IV Q12H, DUONEBS QID, PULMICORT NEBS BID, LOVENOX 40MG SC DAILY, TUSSIONEX 5ML PO Q12H PRN, ZINC 220MG PO DAILY, SOLU-MEDROL 125MG IV Q8H, AND THE POTASSIUM AND MAGNESIUM PROTOCOLS. (2) Pneumonia Status: Acute Qualifiers: Pneumonia type: due to unspecified organism Laterality: bilateral Lung location: upper lobe of lung Qualified Code(s): J18.9 - Pneumonia, unspecified organism (3) Hypoxia Status: Acute
[2019-12-18 05:10] LABS: BASOPHILS % (AUTO) 0.1 % (0.2-1.0); HEMATOCRIT 37.5 % (42.0-54.0); HEMOGLOBIN 12.8 g/dL (13.5-18.0); LYMPHOCYTES # (AUTO) 0.5 X10^3/uL (1.3-2.9); MEAN CORPUSCULAR HEMOGLOBIN 30.7 pg (27.0-34.0); MEAN CORPUSCULAR VOLUME 90.2 fL (80.0-100.0); MEAN PLATELET VOLUME 9.1 fL (7.4-11.0); MONOCYTES # (AUTO) 0.5 x10^3/uL (0.3-0.8); MONOCYTES % (AUTO) 3.9 % (0.0-13.0); NEUTROPHILS # (AUTO) 12.2 x10^3/uL (2.2-4.8); PLATELET COUNT 188 X10^3/uL (150.0-450.0); RED BLOOD COUNT 4.16 X10^6/uL (4.7-6.0); RED CELL DISTRIBUTION WIDTH 14.3 % (11.6-16.5); WHITE BLOOD COUNT 13.2 X10^3/uL (3.6-10.0)
[2019-12-18 05:23] LABS: ALANINE AMINOTRANSFERASE 30 Units/L (12-78); ALBUMIN 2.5 g/dL (3.4-5.0); ALKALINE PHOSPHATASE 56 Units/L (46-116); ASPARTATE AMINO TRANSFERASE 17 Units/L (15-37); BLOOD UREA NITROGEN 24 mg/dL (7-18); CALCIUM 9.2 mg/dL (8.5-10.1); CARBON DIOXIDE 24.5 mmol/L (21-32); CHLORIDE 103 mmol/L (98-107); COR CA(FOR HYPOALB) 10.4 mg/dL (8.5-10.1); COR NA(FOR HYPERGLY) 143 mmol/L (136-145); CREATININE 1.09 mg/dL (0.70-1.30); SODIUM 137 mmol/L (136-145); TOTAL PROTEIN 5.6 g/dL (6.4-8.2); eGFR NON BLACK RACES > 60 (>60)
[2019-12-18] MEDS: SOLU-Medrol 125 MG VIAL IVP SCH (05:49)
[2019-12-18 06:06] LABS: BAND NEUTROPHILS % 2 % (0-10); PLATELET MORPHOLOGY COMMENT NORMAL (NORMAL)
--- NOTE | 2019-12-18 06:25 | RAD ---
HISTORYShortness of breathSTUDYChest AP [id number]/03/2020FINDINGSThe heart is within normal limits in size. The chantal are normal. The lungs are mildly hypoinflated but free of acute alveolar infiltrates. There is mild scarring in the left upper lobe and to a lesser extent on the right. No pleural effusions are identified. Bony thorax is unremarkable.IMPRESSIONLungs hypoinflated but free of acute infiltratesMild bilateral upper lobe pleural parenchymal scarringElectronically signed by: TAVON WELLS (Dec 18, 2019 06:24:27)
[2019-12-18] MEDS: LOVENOX INJ 40 MG SYR SC SCH (09:09)
[2019-12-18] MEDS: MAG-OX TAB PO SCH (09:09)
[2019-12-18] MEDS: VIBRAMYCIN 100 MG in NS 100 ML IV + SPIKE MINIBAG* 100 ML IV SCH (09:10)
[2019-12-18] MEDS: ROBITUSSIN DM PO SCH (09:10)
[2019-12-18] MEDS: VSL#3 PO SCH (09:10)
[2019-12-18] MEDS: ZINC SULFATE PO SCH (09:11)
[2019-12-18] MEDS: DUONEB 0.5 MG/3 MG (3 mL) NEB SCH (09:20)
[2019-12-18] MEDS: PULMICORT NEB TX 0.5 MG NEB SCH (09:20)
[2019-12-18 12:51] VITALS: BP 137/67
== END 2019-12-18 12:30 | disposition home or self-care (01) | DRG 177 ==
LOC: ER 10:55 → MED/SURG 14:10 → ICU 12-14 14:50
PROVIDERS: ADMIT Internal Medicine; ATTEND Internal Medicine
CPT/HCPCS: 36415; 36600; 71010; 71045; 80053; 81001; 82550; 82553; 82728; 82803; 83605; 83615; 83735; 84132; 84484; 85025; 86140; 87040; 93005; 94640; 94760; 96365; 96367; 96374; 99284; A4222; J0713; J1650; J2920; J2930; J3262; J3475; J3490; J7030; J7050; J7620; J7626